=== PATIENT | male | born 1980 | race Caucasian/White ===

== ENCOUNTER 2020-10-21 08:34 | Outpatient (CLI) | payer OTHER | END 2020-10-21 08:35 | disposition home or self-care (01) | LOC: LAB.S 08:34 | PROVIDERS: ATTEND Physician Assistant | DX: R53.83 Other fatigue (principal) | CPT/HCPCS: 36415; 81599; 84402; 84403 ==

== ENCOUNTER 2021-08-27 14:15 | Inpatient (IN) | payer OTHER ==
[2021-08-27] MEDS ORDERED: METOCLOPRAMIDE 10 MG/2 ML VIAL IVP STA (14:56)
[2021-08-27] MEDS ORDERED: SODIUM CHLORIDE 0.9% 1,000 ML IV STA (14:56)
--- NOTE | 2021-08-27 14:59 | ED Physician Documentation ---
PD HPI ABD PAIN - Stated complaint Stated Complaint: VOMITTING - Chief complaint Chief Complaint: Abd Pain - History obtained from History obtained from: Patient - Additional information Additional information: 41-year-old gentleman who is healthy except for the current issue. For several years now he has episodic issues with vomiting, abdominal pain, and what he thinks is a pseudoobstruction. It has plagued his family and his father had similar issues without a specific diagnosis. He has had a very thorough work-up for this including 2 upper endoscopies, 2 lower endoscopies, PillCam, barium studies, MRI of the abdomen all without significant diagnostic abnormalities. Current flare started yesterday, he has been vomiting and unable to hold anything down since. There is been no significant bowel movement. Feels like his abdomen is swollen. He has no history of abdominal surgeries. The last episode was about 18 months ago. He does not smoke and rarely drinks. Uses marijuana maybe once a year, certainly not consistently. Of note, it sounds like he is never been imaged during a flare. Review of Systems Ten Systems: 10 systems reviewed and negative Constitutional: reports: Reviewed and negative Eyes: reports: Reviewed and negative Nose: reports: Reviewed and negative Throat: reports: Reviewed and negative PD PAST MEDICAL HISTORY - Present Medications Home Medications: Ambulatory Orders Medication Instructions Recorded Confirmed metroNIDAZOLE [Flagyl] 1 tab ORAL PRN PRN 08/27/21 08/27/21 - Allergies Allergies/Adverse Reactions: Allergies Allergy/AdvReac Type Severity Reaction Status Date / Time cefaclor [From Ceclor] Allergy Rash Verified 08/27/21 14:23 Penicillins Allergy Hives Verified 08/27/21 14:23 PD ED PE NORMAL - Vitals Vital signs reviewed: Yes - General General: Alert and oriented X 3 (He appears uncomfortable and is laying on his left side) - HEENT HEENT: PERRL, EOMI - Neck Neck: Supple, no meningeal sign, No bony TTP - Cardiac Cardiac: RRR, No murmur - Respiratory Respiratory: No respiratory distress, Clear bilaterally - Abdomen Abdomen: Other (High-pitched tinkling and decreased bowel sounds with a slightly distended abdomen that is nontender) - Back Back: No CVA TTP, No spinal TTP - Derm Derm: Normal color, Warm and dry - Extremities Extremities: No edema, No calf tenderness / cord - Neuro Neuro: Alert and oriented X 3, Normal speech Results - Vitals Vitals: Vital Signs - 24 hr 08/27/21 08/27/21 14:18 15:18 Temperature 36.8 C Heart Rate 67 59 L Respiratory 16 18 Rate Blood Pressure 132/77 H 132/85 H O2 Saturation 99 100 Oxygen O2 Source Room air - Labs Labs: Laboratory Tests 08/27/21 08/27/21 15:14 15:14 WBC 9.2 RBC 4.94 Hgb 15.2 Hct 45.3 MCV 91.7 MCH 30.8 MCHC 33.6 RDW 12.7 Plt Count 208 MPV 10.3 Neut # (Auto) 7.4 H Lymph # (Auto) 0.9 L [place] # (Auto) 0.8 Eos # (Auto) 0.0 Baso # (Auto) 0.0 Absolute Nucleated RBC 0.00 Nucleated RBC % 0.0 Sodium 134 L Potassium 4.1 Chloride 104 Carbon Dioxide 19 L Anion Gap 11.0 BUN 19 Creatinine 1.3 H Estimated GFR (MDRD) 61 L Glucose 84 Calcium 9.3 Total Bilirubin 1.3 H AST 29 ALT 26 Alkaline Phosphatase 69 Total Protein 7.5 Albumin 4.4 Globulin 3.1 Albumin/Globulin Ratio 1.4 Lipase 24 - Rads (name of study) CT of the abdomen pelvis demonstrates a sigmoid volvulus with large bowel obstruction. Radiology: EMP read contemporaneously PD MEDICAL DECISION MAKING - ED course ED course: 41-year-old gentleman with recurrent bouts of abdominal pain of unclear etiology but has never been imaged during a flare presents during a flare with inability to tolerate oral fluids for the last 36 hours and some findings of bowel obstruction on exam proven on CT also showing a sigmoid volvulus. Our on-call surgeon, Dr. Belcher was consulted and saw the patient at approximately 4:[address] Belcher plans to take him to the OR initially for colonoscopy for attempt at decompression. Departure - Departure Disposition: ED Transfer to [facility] Clinical Impression: Sigmoid volvulus Condition: Serious
[2021-08-27] MEDS ORDERED: IOPAMIDOL-300 100 ML VIAL ONE (15:05)
[2021-08-27 15:20] LABS: BASOPHILS % (AUTO) 0.2 %; EOSINOPHILS % (AUTO) 0.2 %; HCT - HEMATOCRIT 45.3 % (42.0-52.0); HGB - HEMOGLOBIN 15.2 g/dL (14.0-18.0); LYMPHOCYTES # (AUTO) 0.9 10^3/uL (1.5-3.5); LYMPHOCYTES % (AUTO) 9.6 %; MEAN CORPUSCULAR HEMOGLOBIN 30.8 pg (27.0-31.0); MEAN CORPUSCULAR HGB CONC 33.6 g/dL (32.0-36.0); MEAN CORPUSCULAR VOLUME 91.7 fL (80.0-94.0); MEAN PLATELET VOLUME 10.3 fL (7.4-11.4); MONOCYTES # (AUTO) 0.8 10^3/uL (0.0-1.0); MONOCYTES % (AUTO) 8.7 %; NEUTROPHILS # (AUTO) 7.4 10^3/uL (1.5-6.6); NEUTROPHILS % (AUTO) 80.9 %; PLT - PLATELET COUNT 208 10^3/uL (130-450); RED BLOOD COUNT 4.94 10^6/uL (4.70-6.10); RED CELL DISTRIBUTION WIDTH 12.7 % (12.0-15.0); WHITE BLOOD COUNT 9.2 x10^3/uL (4.8-10.8)
[2021-08-27 15:32] LABS: ALBUMIN 4.4 g/dL (3.2-5.5); ALBUMIN/GLOBULIN RATIO 1.4 (1.0-2.2); BILIRUBIN,TOTAL 1.3 mg/dL (0.2-1.0); CALCIUM 9.3 mg/dL (8.5-10.3); CREATININE 1.3 mg/dL (0.6-1.2); POTASSIUM 4.1 mmol/L (3.5-5.0); TOTAL PROTEIN 7.5 g/dL (6.7-8.2)
[2021-08-27] MEDS ORDERED: IOPAMIDOL-300 100 ML VIAL IVP ONE (16:28)
--- NOTE | 2021-08-27 16:57 | CT Report ---
PROCEDURE: Abdomen/Pelvis W INDICATIONS: IV only, abd pain, ?SBO CONTRAST: IV CONTRAST: Isovue 300 ml: 100 PO CONTRAST: *NO PO CONTRAST TECHNIQUE: After the administration of contrast, 5 mm thick sections acquired from the diaphragms to the sym physis. 5 mm thick coronal and sagittal reformats were acquired. For radiation dose reduction, the following was used: automated exposure control, adjustment of mA and/or kV according to patient size . COMPARISON: None. FINDINGS: Image quality: Excellent. ABDOMEN: Lung bases: Lung bases are clear. Heart size is normal. Solid organs: Liver and spleen are normal in size and enhancement. Gallbladder the gallbladder has a stone layering dependently. No gallbladder wall thickening or pericholecystic fluid. Biliary syste m is non dilated. Pancreas enhances normally. No adrenal nodules. Kidneys demonstrate normal size and enhancement, without hydronephrosis. Peritoneum and bowel: There is a sigmoid volvulus with severe distention of the large bowel measuring up to 8 cm. Rotation of the central mesentery is noted. Nodes and vessels: No retroperitoneal or mesenteric adenopathy by size criteria. Aorta and inferior vena cava are normal in size. Miscellaneous: No ventral hernias. PELVIS: Genitourinary: Bladder wall thickness is normal. Miscellaneous: No inguinal hernias or adenopathy. Bones: No suspicious bony lesions. No vertebral body compression fractures. IMPRESSION: Sigmoid volvulus with resulting large bowel obstruction. Findings were discussed with Dr. Duarte. Reviewed by: Jeremie Regalado on 08/27/2021 3:55 PM [facility] Approved by: Jeremie Regalado on 08/27/2021 3:55 PM [facility] Station ID: [id number]
[2021-08-27] MEDS ORDERED: HYDROmorphone 1 MG/ML CARPUJECT IVP STA (17:06)
--- NOTE | 2021-08-27 17:41 | SURGERY HX AND PHYSICAL(T) ---
Surgical History & Physical - Chief Complaint/HPI Chief Complaint: abdominal pain, distention, N/V, constipation History of Present Illness: This 41 yo male has had recurrent episodes of abdominal pain and has had an extensive GI workup elsewhere. He has had endoscopies, pill cam, but no definite diagnosis made. He has been prescribed flagyl for "SIBO"- small intestine bacterial overgrowth which he takes occasionally. Last episode was 18 months ago and resolved spontaneously. This episode started 3 days ago and has been associated with N/V/constipation. He has not eaten for two days. No previous abdominal surgery. He has not had any abdominal imaging during an episode until now. His father had a similar condition, undiagnosed, and recently. No definite hx of IBD in the family. - PMH/PSH/Social Hx Does the pt have a hx of MRSA?: No Neurological History: None Eyes, Ears, Nose, Throat: None Cardiovascular: None Respiratory: None Skin: None Endocrine/Autoimmune: None Gastrointestinal: Chronic constipation Urinary: None Musculoskeletal: None Blood Disorders: None Psychiatric: None Eyes Ears Nose Throat (EENT): Other Smoking Status: Never smoker Does the pt drink ETOH?: Yes Frequency: Occasional Does the pt have substance abuse?: No - Family Hx Family Hx: Other (Father had similar episodes of abdominal cramping and distention with no diagnosis made.) - Home Meds and Allergies Home Medications: metroNIDAZOLE [Flagyl] 1 tab ORAL PRN PRN 08/27/21 Allergies/Adverse Reactions: Allergies Allergy/AdvReac Type Severity Reaction Status Date / Time cefaclor [From [facility]] Allergy Rash Verified 08/27/21 14:23 Penicillins Allergy Hives Verified 08/27/21 14:23 - Review of Systems Constitutional: No: Fatigue Respiratory: No: Shortness of breath Gastrointestinal: Nausea, Vomiting, Abdominal pain, Other (distention) - Vital Signs Heart Rate: 61 Blood Pressure: 135/78 Temperature: 37.2 C Respiratory Rate: 17 O2 Saturation: 99 Weight (kg): 72.575 kg Height: 1.8 m - Physical Exam General Appearance: positive: Mild distress, Other (prefers to lie on his left side to reduce discomfort) Eyes Bilatera: positive: Normal inspection ENT: positive: ENT inspection nml Neck: positive: Trachea midline Respiratory: positive: No respiratory distress Cardiovascular: positive: Regular rate & rhythm Peripheral Pulses: positive: 2+ Abdomen: positive: Non-tender, Other (Mild distention. Dilated loops of bowel visible through the abdominal wall.). negative: Guarding, Rebound - Patient Review Patient Review: Problems were reviewed with the patient during this visit. Medications were reviewed with the patient during this visit. Allergies were reviewed this patient during this visit. Pertinent Tests Reviewed: All pertitent test for this patient were reviewed. - Assessment & Plan Assessment and Plan: Sigmoid volvulus in patient with long history of bowel discomfort, extensive GI workup with no definte diagnosis. CT abdomen shows classic findings for sigmoid volvulus, surprising in an individual of his age. He apparently has not had imaging during an episode of pain until this time, so intermittent sigmoid volvulus may be responsible for his previous episodes of pain. Flexible sigmoidoscopy will be done to attempt decompression of the colon and detorsion of the sigmoid colon. If possible, a soft rectal tube will be placed with its tube proximal to the area of torsion. If decompression is not possible or any signs of bowel necrosis are seen, the patient may require exploratory laparotomy with Justin procedure (resection of the sigmoid colon and temporary colostomy. If he is successfully decompressed, options for elective resection of the sigmoid colon will be presented.
--- NOTE | 2021-08-27 18:02 | ANESTHESIA ---
Pre-Anesthesia VS, & Labs - Diagnosis sigmoid volvulus - Procedure Colonoscopy Vital Signs: Temp Pulse Resp BP Pulse Ox 37.2 C 61 17 135/78 H 99 08/27/21 17:57 08/27/21 17:57 08/27/21 17:57 08/27/21 17:57 08/27/21 17:57 Height: 5 ft 11 in Weight (kg): 72.575 kg Body Mass Index: 22.3 BMI Classification: Healthy weight - NPO >8 hours - Lab Results Current Lab Results: Laboratory Tests 08/27/21 15:14: Sodium 134 L, Potassium 4.1, Chloride 104, Carbon Dioxide 19 L, Anion Gap 11.0, BUN 19, Creatinine 1.3 H, Estimated GFR (MDRD) 61 L, Glucose 84, Calcium 9.3, Total Bilirubin 1.3 H, AST 29, ALT 26, Alkaline Phosphatase 69, Total Protein 7.5, Albumin 4.4, Globulin 3.1, Albumin/Globulin Ratio 1.4, Lipase 24 08/27/21 15:14: WBC 9.2, RBC 4.94, Hgb 15.2, Hct 45.3, MCV 91.7, MCH 30.8, MCHC 33.6, RDW 12.7, Plt Count 208, MPV 10.3, Neut # (Auto) 7.4 H, Lymph # (Auto) 0.9 L, Jay # (Auto) 0.8, Eos # (Auto) 0.0, Baso # (Auto) 0.0, Absolute Nucleated RBC 0.00, Nucleated RBC % 0.0 Lab results reviewed: Yes Fish Bones: 08/27/21 15:14 08/27/21 15:14 Home Medications and Allergies Home Medications: Ambulatory Orders metroNIDAZOLE [Flagyl] 1 tab ORAL PRN PRN 08/27/21 metroNIDAZOLE [Flagyl] 1 tab ORAL PRN PRN 08/27/21 Allergies/Adverse Reactions: Allergies Allergy/AdvReac Type Severity Reaction Status Date / Time cefaclor [From [facility]] Allergy Rash Verified 08/27/21 14:23 Penicillins Allergy Hives Verified 08/27/21 14:23 Anes History & Medical History - Anesthetic History Anesthesia Complications: reports: No previous complications Family history of Anesthesia Complications: Denies Family history of Malignant Hyperthermia: Denies - Medical History Cardiovascular: reports: None Pulmonary: reports: None Gastrointestinal: reports: Chronic constipation Urinary: reports: None Neuro: reports: None Musculoskeletal: reports: None Endocrine/Autoimmune: reports: None Blood Disorders: reports: None Skin: reports: None Smoking Status: Never smoker - Surgical History Eyes Ears Nose Throat (EENT): reports: Other Exam General: Alert, Oriented x3, Cooperative, No acute distress Dental: WNL Mouth Openin Fingerbreadth Neck Mobility: Normal Mallampati classification: I Respiratory: Lungs clear, Normal breath sounds, No respiratory distress, No accessory muscle use Cardiovascular: Regular rate, Normal S1, Normal S2, No murmurs Plan Anesthesia Type: General, Total IV Consent for Procedure(s) Verified and Reviewed: Yes Code Status: Attempt Resuscitation ASA classification: 2-Mild systemic disease Is this case an emergency?: Yes
[2021-08-27] MEDS ORDERED: PROPOFOL 500 MG/50 ML 500 MG/50 ML VIAL ONE (18:04)
[2021-08-27 18:13] LABS: B. PARAPERTUSSIS- RESP PCR PAN NOT DETECTED; B. PERTUSSIS- RESP PCR PANEL NOT DETECTED; C. PNEUMONIAE- RESP PCR PANEL NOT DETECTED; CORONAVIRUS 229E-RESP PCR NOT DETECTED; CORONAVIRUS HKU1-RESP PCR NOT DETECTED; CORONAVIRUS NL63-RESP PCR NOT DETECTED; CORONAVIRUS OC43-RESP PCR NOT DETECTED; HUMAN METAPNEUMOVIRUS NOT DETECTED; INFLUENZA A- RESP PCR PANEL NOT DETECTED; INFLUENZA B - RESP PCR PANEL NOT DETECTED; M. PNEUMONIAE- RESP PCR PANEL NOT DETECTED; PARAINFLUENZA VIRUS 1 NOT DETECTED; PARAINFLUENZA VIRUS 2 NOT DETECTED; PARAINFLUENZA VIRUS 3 NOT DETECTED; PARAINFLUENZA VIRUS 4 NOT DETECTED; RHINOVIRUS/ENTEROVIRUS NOT DETECTED; RSV- RESP PCR PANEL NOT DETECTED; SARS-CoV-2 -RESP PCR PANEL NOT DETECTED
[2021-08-27] MEDS ORDERED: PROPOFOL 200 MG/20 ML VIAL IVP ONE (18:59)
--- NOTE | 2021-08-27 19:22 | ANESTHESIA POST OP EVALUATION ---
Anesthesia Post Eval - Post Anesthesia Eval Vitals: Last Vital Signs Temp 36.9 C 08/27/21 19:15 Pulse 63 08/27/21 19:15 Resp 18 08/27/21 19:15 BP 146/81 H 08/27/21 19:15 Pulse Ox 99 08/27/21 19:15 CV Function Including HR & BP: Stable Pain Control: Satisfactory Nausea & Vomiting: Negative Mental Status: Baseline Respiratory Status: Airway Patent Hydration Status: Satisfactory Anesthesia Complications: None
[2021-08-27] MEDS ORDERED: SODIUM CHLORIDE FLUSH 0.9% 10 ML SYRINGE IVP PRN (19:24)
--- NOTE | 2021-08-27 19:32 | OPERATIVE REPORT ---
Operative Report - General Procedure Date: 08/27/21 Planned Procedure: Flex sigmoidoscopy and reduction of sigmoid volvulus Pre-Op Diagnosis: Sigmoid volvulus Procedure Performed: Flexible sigmoidoscopy to splenic flexure (100 cm) Post Op Diagnosis: No evidence for sigmoid volvulus; suspect SBO with dilated small bowel - Procedure Note Primary Surgeon: Ye Anesthesia Provider: Ernesto CARROLL Anesthesia Technique: MAC Estimated Blood Loss (mL): 0 Indications: Abdominal pain, cramping, no BM or flatus with reading of sigmoid volvulus by radiologist on preop CT abdomen Findings: No sigmoid volvulus. Sigmoid and descending colon were found decompressed up to the splenic flexure. No stool in colon up to 100 cm from anal verge. Complications: none - Other Other Information/Narrative: Please see colonoscopy report.
[2021-08-27] MEDS ORDERED: LIDOCAINE 2% URO-JET 5 ML SYRINGE UR ONE (20:33)
[2021-08-27] MEDS: LACTATED RINGERS 1,000 ML IV SCH (20:35)
[2021-08-27] MEDS: HYDROmorphone 0.5 MG/0.5 ML SYRINGE IVP PRN (20:35)
[2021-08-27] MEDS: ONDANSETRON 4 MG/2 ML VIAL IVP PRN (20:35)
[2021-08-28] MEDS: ONDANSETRON 4 MG/2 ML VIAL IVP PRN (00:38)
[2021-08-28] MEDS: HYDROmorphone 0.5 MG/0.5 ML SYRINGE IVP PRN (00:39)
[2021-08-28] MEDS: SODIUM CHLORIDE FLUSH 0.9% 10 ML SYRINGE IVP SCH ×3 (00:45→16:21)
[2021-08-28] MEDS ORDERED: HYDROmorphone 0.5 MG/0.5 ML SYRINGE IVP PRN ×2 (02:13→11:25)
--- NOTE | 2021-08-28 03:15 | PROVIDER PROGRESS NOTE ---
Assessment/Plan - Problem List (1) SBO (small bowel obstruction) Assessment/Plan: Sigmoid volvulus ruled out by flexible sigmoidoscopy. Additional history provided by patient and his mother. 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 He was treated with both mesalamine and budesonide without improvement. His father also had a chronic abdominal problem which was diagnosed as Chronic Intestinal Pseudo-obstruction, which the patient's mother was told is a heritable condition. He eventually had surgery which relieved the obstruction, but he later from a CVA. - Current Meds Current Meds: Current Medications Generic Name Dose Route Start Last Admin Trade Name Freq PRN Reason Stop Dose Admin Lactated Ringer's 1,000 mls @ 125 mls/hr 08/27/21 20:00 08/27/21 20:35 Lr IV 125 mls/hr .Q8H GLORIA Administration Ondansetron HCl 4 mg 08/27/21 20:13 08/28/21 00:38 Ondansetron 4 Mg/2 Ml Vial IVP 4 mg Q4HR PRN Administration Nausea / Vomiting Sodium Chloride 10 ml 08/28/21 01:00 08/28/21 00:45 Sodium Chloride Flush 0.9% 10 Ml Syringe IVP Not Given 0100,0900,1700 GLORIA - Lab Result Fish Bone Diagrams: 08/27/21 15:14 08/27/21 15:14 - Additional Planning My Orders: My Active Orders 08/27/21 19:24 Activity Orders [RC] Q2HR Bladder Scan [RC] PRN IO [RC] IOSHIFT IV Line/Site Care [RC] QSHIFT NG Tube Care [RC] Q4HR Notify Provider - VS Parameter [RC] .notify Vital Signs [RC] Q30MX2,Q2HX2,Q4HX2,QSHIFT Sodium Chloride Flush 0.9% [Normal Saline Flush 0.9%] 10 ml IVP PRN PRN Code Status [OTHERS] Routine Condition of Patient [OTHERS] Routine DVT Prophylaxis [OTHERS] Routine 08/27/21 19:26 NPO except Meds [DIET] 08/27/21 19:28 SCDs [RC] QSHIFT 08/27/21 20:00 Lactated Ringers [Lr] 1,000 ml IV 125 mls/hr 08/27/21 20:13 Ondansetron Inj [Zofran Inj] 4 mg IVP Q4HR PRN 08/27/21 20:32 Nieto Insertion [RC] CONT 08/28/21 01:00 Sodium Chloride Flush 0.9% [Normal Saline Flush 0.9%] 10 ml IVP 0100,0900,1700 08/28/21 03:11 HYDROmorphone 1MG CARP [Dilaudid 1Mg Carp] 1 mg IVP Q2HR PRN 08/28/21 05:00 CBC - COMP BLD CT W/AUTO DIFF [HEME] DAILYLAB COMPREHENSIVE METABOLIC PANEL [CHEM] DAILYLAB 08/28/21 09:00 Abdomen 1 View X-Ray [XR] DAILY 08/29/21 09:00 Abdomen 1 View X-Ray [XR] DAILY 08/30/21 09:00 Abdomen 1 View X-Ray [XR] DAILY 08/31/21 09:00 Abdomen 1 View X-Ray [XR] DAILY 09/01/21 09:00 Abdomen 1 View X-Ray [XR] DAILY Subjective - Subjective Patient Reports: Abdominal Pain (Intermittent episodes of abdominal pain) Objective Vital Signs: Vital Signs - 24 hr 08/27/21 08/27/21 08/27/21 14:18 15:18 17:21 Temperature 36.8 C 37.2 C Heart Rate 67 59 L 61 Heart Rate [ Brachial] Respiratory 16 18 17 Rate Blood Pressure 132/77 H 132/85 H 135/78 H Blood Pressure [Left Brachial artery] O2 Saturation 99 100 99 08/27/21 08/27/21 08/27/21 17:57 19:15 19: Temperature 37.2 C 36.9 C 36.9 C Heart Rate 61 Heart Rate [ 63 60 Brachial] Respiratory 17 18 19 Rate Blood Pressure 135/78 H Blood Pressure 146/81 H 141/79 H [Left Brachial artery] O2 Saturation 99 99 98 08/27/21 08/27/21 08/27/21 19:54 20:48 23:50 Temperature 36.9 C 36.9 C Heart Rate Heart Rate [ 64 65 66 Brachial] Respiratory 19 19 18 Rate Blood Pressure Blood Pressure 141/73 H 142/79 H 121/73 [Left Brachial artery] O2 Saturation 100 98 98 Oxygen O2 Source Room air I&O (Last 24 Hrs): Intake and Output Totals x24h 08/26/21 08/27/21 08/28/21 23:59 23:59 23:59 Intake Total 1000 Output Total 300 200 Balance 700 -200 General: No acute distress Neuro: Oriented Times 3 Abdomen: No tenderness, Other (mild distention) - Results Results: Laboratory Results WBC 9.2 x10^3/uL (4.8-10.8) 08/27/21 15:14 RBC 4.94 10^6/uL (4.70-6.10) 08/27/21 15:14 Hgb 15.2 g/dL (14.0-18.0) 08/27/21 15:14 Hct 45.3 % (42.0-52.0) 08/27/21 15:14 MCV 91.7 fL (80.0-94.0) 08/27/21 15:14 MCH 30.8 pg (27.0-31.0) 08/27/21 15:14 MCHC 33.6 g/dL (32.0-36.0) 08/27/21 15:14 RDW 12.7 % (12.0-15.0) 08/27/21 15:14 Plt Count 208 10^3/uL (130-450) 08/27/21 15:14 MPV 10.3 fL (7.4-11.4) 08/27/21 15:14 Neut # (Auto) 7.4 10^3/uL (1.5-6.6) H 08/27/21 15:14 Lymph # (Auto) 0.9 10^3/uL (1.5-3.5) L 08/27/21 15:14 [place] # (Auto) 0.8 10^3/uL (0.0-1.0) 08/27/21 15:14 Eos # (Auto) 0.0 10^3/uL (0.0-0.7) 08/27/21 15:14 Baso # (Auto) 0.0 10^3/uL (0.0-0.1) 08/27/21 15:14 Absolute Nucleated RBC 0.00 x10^3/uL 08/27/21 15:14 Nucleated RBC % 0.0 /100WBC 08/27/21 15:14 Sodium 134 mmol/L (135-145) L 08/27/21 15:14 Potassium 4.1 mmol/L (3.5-5.0) 08/27/21 15:14 Chloride 104 mmol/L (101-111) 08/27/21 15:14 Carbon Dioxide 19 mmol/L (21-32) L 08/27/21 15:14 Anion Gap 11.0 (6-13) 08/27/21 15:14 BUN 19 mg/dL (6-20) 08/27/21 15:14 Creatinine 1.3 mg/dL (0.6-1.2) H 08/27/21 15:14 Estimated GFR (MDRD) 61 (>89) L 08/27/21 15:14 Glucose 84 mg/dL (70-100) 08/27/21 15:14 POC Whole Bld Glucose 80 mg/dL (70 - 100) 08/27/21 23:47 Calcium 9.3 mg/dL (8.5-10.3) 08/27/21 15:14 Total Bilirubin 1.3 mg/dL (0.2-1.0) H 08/27/21 15:14 AST 29 IU/L (10-42) 08/27/21 15:14 ALT 26 IU/L (10-60) 08/27/21 15:14 Alkaline Phosphatase 69 IU/L (42-121) 08/27/21 15:14 Total Protein 7.5 g/dL (6.7-8.2) 08/27/21 15:14 Albumin 4.4 g/dL (3.2-5.5) 08/27/21 15:14 Globulin 3.1 g/dL (2.1-4.2) 08/27/21 15:14 Albumin/Globulin Ratio 1.4 (1.0-2.2) 08/27/21 15:14 Lipase 24 U/L (22-51) 08/27/21 15:14 Nasal Adenovirus (PCR) NOT DETECTED 08/27/21 17:09 Nasal B. parapertussis DNA (PCR) NOT DETECTED 08/27/21 17:09 Nasal Coronavir 229E PCR NOT DETECTED 08/27/21 17:09 Nasal Coronavir HKU1 PCR NOT DETECTED 08/27/21 17:09 Nasal Coronavir NL63 PCR NOT DETECTED 08/27/21 17:09 Nasal Coronavir OC43 PCR NOT DETECTED 08/27/21 17:09 Nasal Enterovir/Rhinovir PCR NOT DETECTED 08/27/21 17:09 Nasal Influenza B PCR NOT DETECTED 08/27/21 17:09 Nasal Influenza A PCR NOT DETECTED 08/27/21 17:09 Nasal Parainfluen 1 PCR NOT DETECTED 08/27/21 17:09 Nasal Parainfluen 2 PCR NOT DETECTED 08/27/21 17:09 Nasal Parainfluen 3 PCR NOT DETECTED 08/27/21 17:09 Nasal Parainfluen 4 PCR NOT DETECTED 08/27/21 17:09 Nasal RSV (PCR) NOT DETECTED 08/27/21 17:09 Nasal B.pertussis DNA PCR NOT DETECTED 08/27/21 17:09 Nasal C.pneumoniae (PCR) NOT DETECTED 08/27/21 17:09 Chip Human Metapneumo PCR NOT DETECTED 08/27/21 17:09 Nasal M.pneumoniae (PCR) NOT DETECTED 08/27/21 17:09 Nasal SARS-CoV-2 (PCR) NOT DETECTED 08/27/21 17:09
[2021-08-28] MEDS: HYDROmorphone 1 MG/ML CARPUJECT IVP PRN ×4 (03:17→22:01)
[2021-08-28] MEDS ORDERED: SODIUM CHLORIDE 0.9% 500 ML IV ONE ×2 (03:33→16:02)
[2021-08-28] MEDS: LACTATED RINGERS 1,000 ML IV SCH ×2 (04:51→17:26)
[2021-08-28 06:26] LABS: BASOPHILS % (AUTO) 0.3 %; EOSINOPHILS % (AUTO) 0.1 %; HCT - HEMATOCRIT 41.2 % (42.0-52.0); HGB - HEMOGLOBIN 13.9 g/dL (14.0-18.0); LYMPHOCYTES # (AUTO) 0.7 10^3/uL (1.5-3.5); LYMPHOCYTES % (AUTO) 6.7 %; MEAN CORPUSCULAR HEMOGLOBIN 30.6 pg (27.0-31.0); MEAN CORPUSCULAR HGB CONC 33.7 g/dL (32.0-36.0); MEAN CORPUSCULAR VOLUME 90.7 fL (80.0-94.0); MEAN PLATELET VOLUME 9.7 fL (7.4-11.4); MONOCYTES # (AUTO) 0.7 10^3/uL (0.0-1.0); MONOCYTES % (AUTO) 6.8 %; NEUTROPHILS # (AUTO) 8.9 10^3/uL (1.5-6.6); NEUTROPHILS % (AUTO) 85.5 %; PLT - PLATELET COUNT 183 10^3/uL (130-450); RED BLOOD COUNT 4.54 10^6/uL (4.70-6.10); RED CELL DISTRIBUTION WIDTH 12.5 % (12.0-15.0); WHITE BLOOD COUNT 10.4 x10^3/uL (4.8-10.8)
[2021-08-28 06:36] LABS: ALBUMIN 3.7 g/dL (3.2-5.5); ALBUMIN/GLOBULIN RATIO 1.4 (1.0-2.2); CALCIUM 8.6 mg/dL (8.5-10.3); POTASSIUM 4.2 mmol/L (3.5-5.0); TOTAL PROTEIN 6.4 g/dL (6.7-8.2)
--- NOTE | 2021-08-28 08:12 | PROVIDER PROGRESS NOTE ---
Assessment/Plan - Problem List (1) SBO (small bowel obstruction) Assessment/Plan: Less cramping pain but no flatus or BM. Abdomen exam unchanged- soft, no guarding or rigidity, moderate distention. Plan: Discussed at length with the patient and his via telephone. 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 Crohn's has been suspected in the past and treated but with no improvement. Terminal ileum biopsies have shown inflammation but not diagnostic. Patient consented for ex lap, possible small bowel resection, possible ileostomy. - Current Meds Current Meds: Current Medications Generic Name Dose Route Start Last Admin Trade Name Freq PRN Reason Stop Dose Admin Hydromorphone HCl 1 mg 08/28/21 03:11 08/28/21 05:22 Hydromorphone 1 Mg/Ml Carpuject IVP 1 mg Q2HR PRN Administration PAIN Lactated Ringer's 1,000 mls @ 125 mls/hr 08/27/21 20:00 08/28/21 04:51 Lr IV 125 mls/hr .Q8H GLORIA Administration Ondansetron HCl 4 mg 08/27/21 20:13 08/28/21 00:38 Ondansetron 4 Mg/2 Ml Vial IVP 4 mg Q4HR PRN Administration Nausea / Vomiting Sodium Chloride 10 ml 08/28/21 01:00 08/28/21 00:45 Sodium Chloride Flush 0.9% 10 Ml Syringe IVP Not Given 0100,0900,1700 GLORIA - Lab Result Fish Bone Diagrams: 08/28/21 06:12 08/28/21 06:12 - Additional Planning My Orders: My Active Orders 08/27/21 19:24 Activity Orders [RC] Q2HR Bladder Scan [RC] PRN IO [RC] IOSHIFT IV Line/Site Care [RC] QSHIFT NG Tube Care [RC] Q4HR Notify Provider - VS Parameter [RC] .notify Vital Signs [RC] Q30MX2,Q2HX2,Q4HX2,QSHIFT Sodium Chloride Flush 0.9% [Normal Saline Flush 0.9%] 10 ml IVP PRN PRN Code Status [OTHERS] Routine Condition of Patient [OTHERS] Routine DVT Prophylaxis [OTHERS] Routine 08/27/21 19:26 NPO except Meds [DIET] 08/27/21 19:28 SCDs [RC] QSHIFT 08/27/21 20:00 Lactated Ringers [Lr] 1,000 ml IV 125 mls/hr 08/27/21 20:13 Ondansetron Inj [Zofran Inj] 4 mg IVP Q4HR PRN 08/27/21 20:32 Nieto Insertion [RC] CONT 08/28/21 01:00 Sodium Chloride Flush 0.9% [Normal Saline Flush 0.9%] 10 ml IVP 0100,0900,1700 08/28/21 03:11 HYDROmorphone 1MG CARP [Dilaudid 1Mg Carp] 1 mg IVP Q2HR PRN 08/28/21 09:00 Abdomen 1 View X-Ray [XR] DAILY 08/29/21 09:00 Abdomen 1 View X-Ray [XR] DAILY 08/30/21 09:00 Abdomen 1 View X-Ray [XR] DAILY 08/31/21 09:00 Abdomen 1 View X-Ray [XR] DAILY 09/01/21 09:00 Abdomen 1 View X-Ray [XR] DAILY Subjective - Subjective Patient Reports: Feeling Better (Slightly improved.), Abdominal Pain (Persistent waves of pain through the night) Objective Vital Signs: Vital Signs - 24 hr 08/27/21 08/27/21 08/27/21 14:18 15:18 17:21 Temperature 36.8 C 37.2 C Heart Rate 67 59 L 61 Heart Rate [ Brachial] Respiratory 16 18 17 Rate Blood Pressure 132/77 H 132/85 H 135/78 H Blood Pressure [Left Brachial artery] O2 Saturation 99 100 99 08/27/21 08/27/21 08/27/21 17:57 19:15 19:21 Temperature 37.2 C 36.9 C 36.9 C Heart Rate 61 Heart Rate [ 63 60 Brachial] Respiratory 17 18 19 Rate Blood Pressure 135/78 H Blood Pressure 146/81 H 141/79 H [Left Brachial artery] O2 Saturation 99 99 98 08/27/21 08/27/21 08/27/21 19:54 20:48 23:50 Temperature 36.9 C 36.9 C Heart Rate Heart Rate [ 64 65 66 Brachial] Respiratory 19 19 18 Rate Blood Pressure Blood Pressure 141/73 H 142/79 H 121/73 [Left Brachial artery] O2 Saturation 100 98 98 08/28/21 03:48 Temperature 36.6 C Heart Rate Heart Rate [ 60 Brachial] Respiratory 18 Rate Blood Pressure Blood Pressure 127/63 [Left Brachial artery] O2 Saturation 100 Oxygen O2 Source Room air I&O (Last 24 Hrs): Intake and Output Totals x24h 08/26/21 08/27/21 08/28/21 23:59 23:59 23:59 Intake Total 1000 1404.167 Output Total 300 1250 Balance 700 154.167 General: Alert, Oriented x3 Cardiovascular: Regular rate Respiratory: No respiratory distress Abdomen: No tenderness - Results Results: Laboratory Results WBC 10.4 x10^3/uL (4.8-10.8) 08/28/21 06:12 RBC 4.54 10^6/uL (4.70-6.10) L 08/28/21 06:12 Hgb 13.9 g/dL (14.0-18.0) L 08/28/21 06:12 Hct 41.2 % (42.0-52.0) L 08/28/21 06:12 MCV 90.7 fL (80.0-94.0) 08/28/21 06:12 MCH 30.6 pg (27.0-31.0) 08/28/21 06:12 MCHC 33.7 g/dL (32.0-36.0) 08/28/21 06:12 RDW 12.5 % (12.0-15.0) 08/28/21 06:12 Plt Count 183 10^3/uL (130-450) 08/28/21 06:12 MPV 9.7 fL (7.4-11.4) 08/28/21 06:12 Neut # (Auto) 8.9 10^3/uL (1.5-6.6) H 08/28/21 06:12 Lymph # (Auto) 0.7 10^3/uL (1.5-3.5) L 08/28/21 06:12 [place] # (Auto) 0.7 10^3/uL (0.0-1.0) 08/28/21 06:12 Eos # (Auto) 0.0 10^3/uL (0.0-0.7) 08/28/21 06:12 Baso # (Auto) 0.0 10^3/uL (0.0-0.1) 08/28/21 06:12 Absolute Nucleated RBC 0.00 x10^3/uL 08/28/21 06:12 Nucleated RBC % 0.0 /100WBC 08/28/21 06:12 Sodium 133 mmol/L (135-145) L 08/28/21 06:12 Potassium 4.2 mmol/L (3.5-5.0) 08/28/21 06:12 Chloride 103 mmol/L (101-111) 08/28/21 06:12 Carbon Dioxide 20 mmol/L (21-32) L 08/28/21 06:12 Anion Gap 10.0 (6-13) 08/28/21 06:12 BUN 14 mg/dL (6-20) 08/28/21 06:12 Creatinine 1.0 mg/dL (0.6-1.2) 08/28/21 06:12 Estimated GFR (MDRD) 83 (>89) L 08/28/21 06:12 Glucose 96 mg/dL (70-100) 08/28/21 06:12 POC Whole Bld Glucose 80 mg/dL (70 - 100) 08/27/21 23:47 Calcium 8.6 mg/dL (8.5-10.3) 08/28/21 06:12 Total Bilirubin 1.0 mg/dL (0.2-1.0) 08/28/21 06:12 AST 23 IU/L (10-42) 08/28/21 06:12 ALT 23 IU/L (10-60) 08/28/21 06:12 Alkaline Phosphatase 66 IU/L (42-121) 08/28/21 06:12 Total Protein 6.4 g/dL (6.7-8.2) L 08/28/21 06:12 Albumin 3.7 g/dL (3.2-5.5) 08/28/21 06:12 Globulin 2.7 g/dL (2.1-4.2) 08/28/21 06:12 Albumin/Globulin Ratio 1.4 (1.0-2.2) 08/28/21 06:12 Lipase 24 U/L (22-51) 08/27/21 15:14 Nasal Adenovirus (PCR) NOT DETECTED 08/27/21 17:09 Nasal B. parapertussis DNA (PCR) NOT DETECTED 08/27/21 17:09 Nasal Coronavir 229E PCR NOT DETECTED 08/27/21 17:09 Nasal Coronavir HKU1 PCR NOT DETECTED 08/27/21 17:09 Nasal Coronavir NL63 PCR NOT DETECTED 08/27/21 17:09 Nasal Coronavir OC43 PCR NOT DETECTED 08/27/21 17:09 Nasal Enterovir/Rhinovir PCR NOT DETECTED 08/27/21 17:09 Nasal Influenza B PCR NOT DETECTED 08/27/21 17:09 Nasal Influenza A PCR NOT DETECTED 08/27/21 17:09 Nasal Parainfluen 1 PCR NOT DETECTED 08/27/21 17:09 Nasal Parainfluen 2 PCR NOT DETECTED 08/27/21 17:09 Nasal Parainfluen 3 PCR NOT DETECTED 08/27/21 17:09 Nasal Parainfluen 4 PCR NOT DETECTED 08/27/21 17:09 Nasal RSV (PCR) NOT DETECTED 08/27/21 17:09 Nasal B.pertussis DNA PCR NOT DETECTED 08/27/21 17:09 Nasal C.pneumoniae (PCR) NOT DETECTED 08/27/21 17:09 Chip Human Metapneumo PCR NOT DETECTED 08/27/21 17:09 Nasal M.pneumoniae (PCR) NOT DETECTED 08/27/21 17:09 Nasal SARS-CoV-2 (PCR) NOT DETECTED 08/27/21 17:09 ABX Reporting Has patient been on IV antibiotics over the past 48 hours?: No
[2021-08-28] MEDS ORDERED: LIDOCAINE-MPF 2% 5 ML VIAL ONE (08:56)
[2021-08-28] MEDS ORDERED: ROCURONIUM 50 MG/5 ML VIAL ONE ×2 (08:56→10:14)
[2021-08-28] MEDS ORDERED: PROPOFOL 200 MG/20 ML VIAL IVP ONE (08:56)
[2021-08-28] MEDS ORDERED: fentaNYL 100 MCG/2 ML VIAL ONE ×2 (09:01→09:41)
[2021-08-28] MEDS ORDERED: MIDAZOLAM 2 MG/2 ML VIAL ONE (09:03)
[2021-08-28] MEDS ORDERED: BUPIVACAINE 0.5% PF 10 ML VIAL ONE ×2 (09:29)
[2021-08-28] MEDS ORDERED: LIDOCAINE-MPF 1% 30 ML VIAL ONE (09:29)
--- NOTE | 2021-08-28 09:40 | XRAY Report ---
PROCEDURE: Abdomen 1 View X-Ray INDICATIONS: SBO TECHNIQUE: 1 view of the abdomen were acquired. COMPARISON: 08/27/2021 CT abdomen and pelvis FINDINGS: Sigmoid volvulus an associated extensive bowel dilatation not significantly changed in appearance. IMPRESSION: Sigmoid volvulus an large bowel obstruction is not significantly changed. Reviewed by: Joel Perez MD on 08/28/2021 9:38 AM PST Approved by: Joel Perez MD on 08/28/2021 9:38 AM PST Station ID: [id number]
[2021-08-28] MEDS ORDERED: DEXAMETHASONE 4 MG/ML VIAL ONE (10:12)
[2021-08-28] MEDS ORDERED: ONDANSETRON 4 MG/2 ML VIAL ONE (10:12)
[2021-08-28] MEDS ORDERED: KETOROLAC 30 MG/ML VIAL ONE (10:12)
[2021-08-28] MEDS ORDERED: ACETAMINOPHEN 1,000 MG/100 ML 100 ML IV ONE (10:12)
[2021-08-28] MEDS ORDERED: ROPIVACAINE 0.5% PF 20 ML AMPULE ONE (10:13)
[2021-08-28] MEDS ORDERED: ceFAZolin 1 GM VIAL ONE (10:13)
[2021-08-28] MEDS ORDERED: SEVOFLURANE 250 ML LIQUID INH ONE (10:19)
[2021-08-28] MEDS ORDERED: SUGAMMADEX 200 MG/2 ML VIAL IVP ONE ×2 (10:48→11:12)
--- NOTE | 2021-08-28 11:12 | OPERATIVE REPORT ---
Operative Report - General Admit Date: 08/27/21 Procedure Date: 08/28/21 Planned Procedure: Exploratory laparotomy, possible small bowel resection Pre-Op Diagnosis: Small bowel obstruction Procedure Performed: Exploratory laparotomy, reduction of midgut volvulus Post Op Diagnosis: Midgut volvulus - Procedure Note Primary Surgeon: Ye Secondary Surgeon: kelsi Anesthesia Provider: Elzbieta Sahikh CRNA Anesthesia Technique: General ET tube Pathology: none Estimated Blood Loss (mL): 25 Indications: 41 yo Male with a 10-year history of intermittent abdominal pain and distention. He has had extensive evaluation by gastroenterology and carried a diagnosis of Crohn's disease at one time but did not have any improvement with medication for Crohn's. Current episode of pain began [address] scan was read as showing a sigmoid volvulus but the patient had flexible sigmoidoscopy last night and there was no evidence for sigmoid volvulus. After overnight observation with IV fluids and nasogastric suction his abdominal exam was unchanged and he had passed no flatus. He was consented for exploratory laparotomy with possible small bowel resection. Findings: The patient had massive, chronic distention of the small bowel from the mid jejunum to the distal ileum. 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 After evisceration and counterclockwise rotation of the small bowel the volvulus was reduced and all the small bowel was well perfused. There were no areas of ischemic or necrotic bowel. Small bowel contents were easily passed into the cecum, with no evidence for Crohn's disease or adhesive bands in the region of the terminal ileum. Complications: none - Other Other Information/Narrative: The patient was taken to the operating room where general anesthesia was induced and the patient was intubated. The abdomen was prepped with ChloraPrep and sterilely draped in usual fashion. A midline incision from slightly above the umbilicus to the symphysis pubis was made with a scalpel and cautery was used to divide the midline fascia. The abdomen was entered with only a small amount of ascites noted. The chronically distended loops of small bowel were eviscerated the midgut volvulus was noted and the bowel was rotated counterclockwise to reduce the volvulus. All bowel pinked up and appeared well perfused after the volvulus was reduced. Nasogastric tube position in the stomach was checked. Contents of the ileum were manually expressed into the cecum to the ileocecal valve without difficulty. The small bowel was then placed back into the abdomen with care taken to prevent any further torsion or volvulus. The abdomen was irrigated with saline and the midline fascia was closed with a running double- stranded 0 PDS. The subcutaneous tissues were approximated with 3-0 Vicryl interrupted sutures and skin was closed with glendy. Mepilex dressing was applied and the patient had TRACY abdominal blocks by BAK[facility] HELPER prior to extubation.
[2021-08-28] MEDS ORDERED: MORPHINE 2 MG/ML CARPUJECT IVP PRN (11:25)
[2021-08-28] MEDS ORDERED: NALOXONE 0.4 MG/ML VIAL IVP PRN (11:25)
[2021-08-28] MEDS ORDERED: ePHEDrine 50 MG/ML VIAL IVP PRN (11:25)
[2021-08-28] MEDS ORDERED: fentaNYL 100 MCG/2 ML VIAL IVP PRN (11:25)
[2021-08-28] MEDS ORDERED: ATROPINE ABBOJECT 1 MG/10 ML SYRINGE IVP PRN (11:25)
[2021-08-28] MEDS ORDERED: METOCLOPRAMIDE 10 MG/2 ML VIAL IVP PRN (11:25)
[2021-08-28] MEDS ORDERED: ONDANSETRON 4 MG/2 ML VIAL IVP PRN (11:25)
[2021-08-28] MEDS ORDERED: LACTATED RINGERS 1,000 ML IV ONE (11:26)
[2021-08-28] MEDS ORDERED: LACTATED RINGERS 1,000 ML IV SCH (12:00)
--- NOTE | 2021-08-28 13:15 | ANESTHESIA POST OP EVALUATION ---
Anesthesia Post Eval - Post Anesthesia Eval Vitals: Last Vital Signs Temp 36.7 C 08/28/21 13:00 Pulse 78 08/28/21 13:00 Resp 17 08/28/21 13:00 BP 124/69 08/28/21 13:00 Pulse Ox 95 08/28/21 13:00 CV Function Including HR & BP: Stable Pain Control: Satisfactory Nausea & Vomiting: Negative Mental Status: Baseline Respiratory Status: Airway Patent Hydration Status: Satisfactory Anesthesia Complications: None
--- NOTE | 2021-08-28 16:07 | PROVIDER PROGRESS NOTE ---
Subjective - General Admit Date: 08/27/21 Procedure Date: 08/28/21 Post Op Days: 0 Procedure Performed: Ex lap, detorsion of midgut volvulus - Review of Systems Wound/Incisions: positive: Dressing dry and intact Objective - Patient Data Reviewed Vital Signs: Yes Vital Signs: Vital Signs x48h Temp Pulse Pulse Resp BP BP Pulse Ox 08/28/21 15:00 36.8 C 72 16 120/61 94 08/28/21 13:00 36.7 C 78 17 124/69 95 08/28/21 12:30 67 16 120/62 93 08/28/21 12:15 36.8 C 66 16 116/63 93 08/28/21 12:00 66 16 115/66 93 08/28/21 11:55 36.8 C 70 16 118/66 94 08/28/21 11:37 36.6 C 80 15 123/73 93 08/28/21 11:32 36.6 C 65 13 119/69 92 08/28/21 11:28 36.6 C 66 13 120/69 92 08/28/21 11:23 36.7 C 67 15 114/66 92 08/28/21 11:18 36.7 C 76 17 120/66 96 08/28/21 08:33 36.5 C 60 18 121/71 99 Weight: Weight 08/26/21 08/27/21 08/28/21 23:59 23:59 23:59 Weight (kg) 74 kg Intake & Output: Intake and Output Totals x24h 08/26/21 08/27/21 08/28/21 23:59 23:59 23:59 Intake Total 1000 1404.167 Output Total 300 1750 Balance 700 -345.833 - Lab Results Lab Results: 08/28/21 06:12 08/28/21 06:12 Other Lab Results: Lab Results x24hrs 08/28/21 08/28/21 08/28/21 Range/Units 12: 06:12 06:12 WBC 10.4 (4.8-10.8) x10^3/uL RBC 4.54 L (4.70-6.10) 10^6/uL Hgb 13.9 L (14.0-18.0) g/dL Hct 41.2 L (42.0-52.0) % MCV 90.7 (80.0-94.0) fL MCH 30.6 (27.0-31.0) pg MCHC 33.7 (32.0-36.0) g/dL RDW 12.5 (12.0-15.0) % Plt Count 183 (130-450) 10^3/uL MPV 9.7 (7.4-11.4) fL Neut # (Auto) 8.9 H (1.5-6.6) 10^3/uL Lymph # (Auto) 0.7 L (1.5-3.5) 10^3/uL [place] # (Auto) 0.7 (0.0-1.0) 10^3/uL Eos # (Auto) 0.0 (0.0-0.7) 10^3/uL Baso # (Auto) 0.0 (0.0-0.1) 10^3/uL Absolute Nucleated RBC 0.00 x10^3/uL Nucleated RBC % 0.0 /100WBC Sodium 133 L (135-145) mmol/L Potassium 4.2 (3.5-5.0) mmol/L Chloride 103 (101-111) mmol/L Carbon Dioxide 20 L (21-32) mmol/L Anion Gap 10.0 (6-13) BUN 14 (6-20) mg/dL Creatinine 1.0 (0.6-1.2) mg/dL Estimated GFR (MDRD) 83 L (>89) Glucose 96 (70-100) mg/dL POC Whole Bld Glucose 99 (70 - 100) mg/dL Calcium 8.6 (8.5-10.3) mg/dL Total Bilirubin 1.0 (0.2-1.0) mg/dL AST 23 (10-42) IU/L ALT 23 (10-60) IU/L Alkaline Phosphatase 66 (42-121) IU/L Total Protein 6.4 L (6.7-8.2) g/dL Albumin 3.7 (3.2-5.5) g/dL Globulin 2.7 (2.1-4.2) g/dL Albumin/Globulin Ratio 1.4 (1.0-2.2) Nasal Adenovirus (PCR) Nasal B. parapertussis DNA (PCR) Nasal Coronavir 229E PCR Nasal Coronavir HKU1 PCR Nasal Coronavir NL63 PCR Nasal Coronavir OC43 PCR Nasal Enterovir/Rhinovir PCR Nasal Influenza B PCR Nasal Influenza A PCR Nasal Parainfluen 1 PCR Nasal Parainfluen 2 PCR Nasal Parainfluen 3 PCR Nasal Parainfluen 4 PCR Nasal RSV (PCR) Nasal B.pertussis DNA PCR Nasal C.pneumoniae (PCR) Chip Human Metapneumo PCR Nasal M.pneumoniae (PCR) Nasal SARS-CoV-2 (PCR) 08/27/21 08/27/21 08/27/21 Range/Units 23:47 21:25 17:09 WBC (4.8-10.8) x10^3/uL RBC (4.70-6.10) 10^6/uL Hgb (14.0-18.0) g/dL Hct (42.0-52.0) % MCV (80.0-94.0) fL MCH (27.0-31.0) pg MCHC (32.0-36.0) g/dL RDW (12.0-15.0) % Plt Count (130-450) 10^3/uL MPV (7.4-11.4) fL Neut # (Auto) (1.5-6.6) 10^3/uL Lymph # (Auto) (1.5-3.5) 10^3/uL [place] # (Auto) (0.0-1.0) 10^3/uL Eos # (Auto) (0.0-0.7) 10^3/uL Baso # (Auto) (0.0-0.1) 10^3/uL Absolute Nucleated RBC x10^3/uL Nucleated RBC % /100WBC Sodium (135-145) mmol/L Potassium (3.5-5.0) mmol/L Chloride (101-111) mmol/L Carbon Dioxide (21-32) mmol/L Anion Gap (6-13) BUN (6-20) mg/dL Creatinine (0.6-1.2) mg/dL Estimated GFR (MDRD) (>89) Glucose (70-100) mg/dL POC Whole Bld Glucose 80 79 (70 - 100) mg/dL Calcium (8.5-10.3) mg/dL Total Bilirubin (0.2-1.0) mg/dL AST (10-42) IU/L ALT (10-60) IU/L Alkaline Phosphatase (42-121) IU/L Total Protein (6.7-8.2) g/dL Albumin (3.2-5.5) g/dL Globulin (2.1-4.2) g/dL Albumin/Globulin Ratio (1.0-2.2) Nasal Adenovirus (PCR) NOT DETECTED Nasal B. parapertussis DNA (PCR) NOT DETECTED Nasal Coronavir 229E PCR NOT DETECTED Nasal Coronavir HKU1 PCR NOT DETECTED Nasal Coronavir NL63 PCR NOT DETECTED Nasal Coronavir OC43 PCR NOT DETECTED Nasal Enterovir/Rhinovir PCR NOT DETECTED Nasal Influenza B PCR NOT DETECTED Nasal Influenza A PCR NOT DETECTED Nasal Parainfluen 1 PCR NOT DETECTED Nasal Parainfluen 2 PCR NOT DETECTED Nasal Parainfluen 3 PCR NOT DETECTED Nasal Parainfluen 4 PCR NOT DETECTED Nasal RSV (PCR) NOT DETECTED Nasal B.pertussis DNA PCR NOT DETECTED Nasal C.pneumoniae (PCR) NOT DETECTED Chip Human Metapneumo PCR NOT DETECTED Nasal M.pneumoniae (PCR) NOT DETECTED Nasal SARS-CoV-2 (PCR) NOT DETECTED - Current Medications Current Medications: Current Medications Generic Name Dose Route Start Last Admin Trade Name Freq PRN Reason Stop Dose Admin Hydromorphone HCl 1 mg 08/28/21 03:11 08/28/21 05:22 Hydromorphone 1 Mg/Ml Carpuject IVP 1 mg Q2HR PRN Administration PAIN Lactated Ringer's 1,000 mls @ 125 mls/hr 08/27/21 20:00 08/28/21 04:51 Lr IV 125 mls/hr .Q8H GLORIA Administration Ondansetron HCl 4 mg 08/27/21 20:13 08/28/21 00:38 Ondansetron 4 Mg/2 Ml Vial IVP 4 mg Q4HR PRN Administration Nausea / Vomiting Sodium Chloride 10 ml 08/28/21 01:00 08/28/21 13:07 Sodium Chloride Flush 0.9% 10 Ml Syringe IVP Not Given 0100,0900,1700 [facility] - Physical Exam Wound/Incisions: positive: Dressing dry and intact Impression/Plan - Problem List Problem List: Postop check, s/p detorsion of midgut volvulus. Patient resting comfortably. Urine dark and concentrated. Plan: check CMP now, normal saline 500 ml fluid bolus. Ng to LIS.
[2021-08-28 16:24] LABS: ALBUMIN 3.3 g/dL (3.2-5.5); ALBUMIN/GLOBULIN RATIO 1.3 (1.0-2.2); BILIRUBIN,TOTAL 1.9 mg/dL (0.2-1.0); CALCIUM 8.3 mg/dL (8.5-10.3); POTASSIUM 4.1 mmol/L (3.5-5.0); TOTAL PROTEIN 5.9 g/dL (6.7-8.2)
[2021-08-29] MEDS: HYDROmorphone 1 MG/ML CARPUJECT IVP PRN ×8 (00:11→20:23)
[2021-08-29] MEDS: LACTATED RINGERS 1,000 ML IV SCH ×2 (00:24→09:14)
[2021-08-29] MEDS: SODIUM CHLORIDE FLUSH 0.9% 10 ML SYRINGE IVP SCH ×3 (00:39→19:06)
[2021-08-29 06:10] LABS: POTASSIUM 3.9 mmol/L (3.5-5.0)
[2021-08-29] MEDS ORDERED: DEXTROSE 5%-LACTATED RINGERS 1,000 ML IV SCH (10:00)
[2021-08-29 10:09] LABS: BASOPHILS % (AUTO) 0.3 %; EOSINOPHILS # (AUTO) 0.3 10^3/uL (0.0-0.7); EOSINOPHILS % (AUTO) 3.2 %; HCT - HEMATOCRIT 37.7 % (42.0-52.0); HGB - HEMOGLOBIN 12.7 g/dL (14.0-18.0); LYMPHOCYTES # (AUTO) 0.9 10^3/uL (1.5-3.5); LYMPHOCYTES % (AUTO) 9.1 %; MEAN CORPUSCULAR HEMOGLOBIN 31.1 pg (27.0-31.0); MEAN CORPUSCULAR HGB CONC 33.7 g/dL (32.0-36.0); MEAN CORPUSCULAR VOLUME 92.2 fL (80.0-94.0); MEAN PLATELET VOLUME 11.3 fL (7.4-11.4); MONOCYTES # (AUTO) 1.5 10^3/uL (0.0-1.0); MONOCYTES % (AUTO) 15.2 %; NEUTROPHILS % (AUTO) 71.9 %; PLT - PLATELET COUNT 178 10^3/uL (130-450); RED BLOOD COUNT 4.09 10^6/uL (4.70-6.10); WHITE BLOOD COUNT 9.7 x10^3/uL (4.8-10.8)
--- NOTE | 2021-08-29 10:20 | PROVIDER PROGRESS NOTE ---
Subjective - General Admit Date: 08/27/21 Procedure Date: 08/28/21 Post Op Days: 1 Procedure Performed: Ex lap, detorsion of midgut volvulus - Review of Systems Wound/Incisions: positive: Dressing dry and intact General: positive: No symptoms Objective - Patient Data Reviewed Vital Signs: Yes Weight: Weight 08/27/21 08/28/21 08/29/21 23:59 23:59 23:59 Weight (kg) 74 kg Intake & Output: Intake and Output Totals x24h 08/27/21 08/28/21 08/29/21 23:59 23:59 23:59 Intake Total 1000 3512.500 1262.5 Output Total 300 2205 375 Balance 700 1307.500 887.5 - Lab Results Lab Results: 08/29/21 05:20 08/29/21 05:37 Other Lab Results: Lab Results x24hrs 08/29/21 08/29/21 08/29/21 Range/Units 05:51 05:37 05:20 WBC 9.7 (4.8-10.8) x10^3/uL RBC 4.09 L (4.70-6.10) 10^6/uL Hgb 12.7 L (14.0-18.0) g/dL Hct 37.7 L (42.0-52.0) % MCV 92.2 (80.0-94.0) fL MCH 31.1 H (27.0-31.0) pg MCHC 33.7 (32.0-36.0) g/dL RDW 13.0 (12.0-15.0) % Plt Count 178 (130-450) 10^3/uL MPV 11.3 (7.4-11.4) fL Neut # (Auto) 7.0 H (1.5-6.6) 10^3/uL Lymph # (Auto) 0.9 L (1.5-3.5) 10^3/uL [place] # (Auto) 1.5 H (0.0-1.0) 10^3/uL Eos # (Auto) 0.3 (0.0-0.7) 10^3/uL Baso # (Auto) 0.0 (0.0-0.1) 10^3/uL Absolute Nucleated RBC 0.00 x10^3/uL Nucleated RBC % 0.0 /100WBC Sodium 136 (135-145) mmol/L Potassium 3.9 (3.5-5.0) mmol/L Chloride 104 (101-111) mmol/L Carbon Dioxide 25 (21-32) mmol/L Anion Gap 7.0 (6-13) BUN 20 (6-20) mg/dL Creatinine 1.0 (0.6-1.2) mg/dL Estimated GFR (MDRD) 83 L (>89) Glucose 114 H (70-100) mg/dL POC Whole Bld Glucose 104 H (70 - 100) mg/dL Calcium 8.0 L (8.5-10.3) mg/dL Total Bilirubin (0.2-1.0) mg/dL AST (10-42) IU/L ALT (10-60) IU/L Alkaline Phosphatase (42-121) IU/L Total Protein (6.7-8.2) g/dL Albumin (3.2-5.5) g/dL Globulin (2.1-4.2) g/dL Albumin/Globulin Ratio (1.0-2.2) 08/29/21 08/28/21 08/28/21 Range/Units 00:16 17:53 16:07 WBC (4.8-10.8) x10^3/uL RBC (4.70-6.10) 10^6/uL Hgb (14.0-18.0) g/dL Hct (42.0-52.0) % MCV (80.0-94.0) fL MCH (27.0-31.0) pg MCHC (32.0-36.0) g/dL RDW (12.0-15.0) % Plt Count (130-450) 10^3/uL MPV (7.4-11.4) fL Neut # (Auto) (1.5-6.6) 10^3/uL Lymph # (Auto) (1.5-3.5) 10^3/uL [place] # (Auto) (0.0-1.0) 10^3/uL Eos # (Auto) (0.0-0.7) 10^3/uL Baso # (Auto) (0.0-0.1) 10^3/uL Absolute Nucleated RBC x10^3/uL Nucleated RBC % /100WBC Sodium 134 L (135-145) mmol/L Potassium 4.1 (3.5-5.0) mmol/L Chloride 102 (101-111) mmol/L Carbon Dioxide 20 L (21-32) mmol/L Anion Gap 12.0 (6-13) BUN 17 (6-20) mg/dL Creatinine 1.0 (0.6-1.2) mg/dL Estimated GFR (MDRD) 83 L (>89) Glucose 115 H (70-100) mg/dL POC Whole Bld Glucose 120 H 120 H (70 - 100) mg/dL Calcium 8.3 L (8.5-10.3) mg/dL Total Bilirubin 1.9 H (0.2-1.0) mg/dL AST 27 (10-42) IU/L ALT 23 (10-60) IU/L Alkaline Phosphatase 73 (42-121) IU/L Total Protein 5.9 L (6.7-8.2) g/dL Albumin 3.3 (3.2-5.5) g/dL Globulin 2.6 (2.1-4.2) g/dL Albumin/Globulin Ratio 1.3 (1.0-2.2) 12/25/ Range/Units 12:22 WBC (4.8-10.8) x10^3/uL RBC (4.70-6.10) 10^6/uL Hgb (14.0-18.0) g/dL Hct (42.0-52.0) % MCV (80.0-94.0) fL MCH (27.0-31.0) pg MCHC (32.0-36.0) g/dL RDW (12.0-15.0) % Plt Count (130-450) 10^3/uL MPV (7.4-11.4) fL Neut # (Auto) (1.5-6.6) 10^3/uL Lymph # (Auto) (1.5-3.5) 10^3/uL [place] # (Auto) (0.0-1.0) 10^3/uL Eos # (Auto) (0.0-0.7) 10^3/uL Baso # (Auto) (0.0-0.1) 10^3/uL Absolute Nucleated RBC x10^3/uL Nucleated RBC % /100WBC Sodium (135-145) mmol/L Potassium (3.5-5.0) mmol/L Chloride (101-111) mmol/L Carbon Dioxide (21-32) mmol/L Anion Gap (6-13) BUN (6-20) mg/dL Creatinine (0.6-1.2) mg/dL Estimated GFR (MDRD) (>89) Glucose (70-100) mg/dL POC Whole Bld Glucose 99 (70 - 100) mg/dL Calcium (8.5-10.3) mg/dL Total Bilirubin (0.2-1.0) mg/dL AST (10-42) IU/L ALT (10-60) IU/L Alkaline Phosphatase (42-121) IU/L Total Protein (6.7-8.2) g/dL Albumin (3.2-5.5) g/dL Globulin (2.1-4.2) g/dL Albumin/Globulin Ratio (1.0-2.2) - Current Medications Current Medications: Current Medications Generic Name Dose Route Start Last Admin Trade Name Freq PRN Reason Stop Dose Admin Hydromorphone HCl 1 mg 08/28/21 03:11 08/29/21 09:14 Hydromorphone 1 Mg/Ml Carpuject IVP 1 mg Q2HR PRN Administration PAIN Ondansetron HCl 4 mg 08/27/21 20:13 08/28/21 00:38 Ondansetron 4 Mg/2 Ml Vial IVP 4 mg Q4HR PRN Administration Nausea / Vomiting Sodium Chloride 10 ml 08/28/21 01:00 08/29/21 09:14 Sodium Chloride Flush 0.9% 10 Ml Syringe IVP Not Given 0100,0900,1700 [facility] - Physical Exam Wound/Incisions: positive: Dressing dry and intact Abdomen: positive: No distention Impression/Plan - Problem List Problem List: Doing better, less pain. Has not ambulated yet. Plan: Ambulate TID, up in chair. D/C fisher Continue NG tube to LIS but allow sips/chips Follow CBC and CMP. Electrolytes OK but T Bili 1.9 yesterday.
[2021-08-29] MEDS ORDERED: BENZOCAINE/MENTHOL LOZENGE MM PRN (16:53)
[2021-08-29] MEDS ORDERED: PHENOL THROAT SPRAY 177 ML MM PRN (16:53)
[2021-08-29] MEDS: DEXTROSE 5%-LACTATED RINGERS 1,000 ML IV SCH (21:44)
[2021-08-30] MEDS: HYDROmorphone 1 MG/ML CARPUJECT IVP PRN ×5 (00:23→22:22)
[2021-08-30] MEDS: SODIUM CHLORIDE FLUSH 0.9% 10 ML SYRINGE IVP SCH ×3 (03:23→17:57)
[2021-08-30 06:08] LABS: BASOPHILS % (AUTO) 0.3 %; EOSINOPHILS # (AUTO) 0.1 10^3/uL (0.0-0.7); EOSINOPHILS % (AUTO) 0.7 %; HCT - HEMATOCRIT 34.5 % (42.0-52.0); HGB - HEMOGLOBIN 11.5 g/dL (14.0-18.0); LYMPHOCYTES # (AUTO) 0.9 10^3/uL (1.5-3.5); LYMPHOCYTES % (AUTO) 12.5 %; MEAN CORPUSCULAR HEMOGLOBIN 30.8 pg (27.0-31.0); MEAN CORPUSCULAR HGB CONC 33.3 g/dL (32.0-36.0); MEAN CORPUSCULAR VOLUME 92.5 fL (80.0-94.0); MEAN PLATELET VOLUME 9.5 fL (7.4-11.4); MONOCYTES # (AUTO) 0.9 10^3/uL (0.0-1.0); MONOCYTES % (AUTO) 12.1 %; NEUTROPHILS # (AUTO) 5.2 10^3/uL (1.5-6.6); NEUTROPHILS % (AUTO) 74.1 %; PLT - PLATELET COUNT 132 10^3/uL (130-450); RED BLOOD COUNT 3.73 10^6/uL (4.70-6.10); RED CELL DISTRIBUTION WIDTH 12.7 % (12.0-15.0)
[2021-08-30 06:34] LABS: ALBUMIN 2.7 g/dL (3.2-5.5); ALBUMIN/GLOBULIN RATIO 1.1 (1.0-2.2); BILIRUBIN,TOTAL 0.6 mg/dL (0.2-1.0); CALCIUM 8.1 mg/dL (8.5-10.3); CREATININE 0.9 mg/dL (0.6-1.2); POTASSIUM 3.3 mmol/L (3.5-5.0); TOTAL PROTEIN 5.2 g/dL (6.7-8.2)
--- NOTE | 2021-08-30 07:37 | XRAY Report ---
PROCEDURE: Chest 2 View X-Ray INDICATIONS: postop atelectasisi TECHNIQUE: 2 view(s) of the chest. COMPARISON: CT abdomen pelvis 08/27/2021, x-ray abdomen 08/28/2021 FINDINGS: Surgical changes and devices: None. Lungs and pleura: No pleural effusions or pneumothorax. Lungs are clear. Mediastinum: Mediastinal contours are normal. Heart size is normal. Bones and chest wall: No suspicious bony abnormalities. Soft tissues appear unremarkable. Miscellaneous: There is marked lucency below the hemidiaphragms bilaterally. It is noted that these a reas corresponded to markedly dilated bowel loops on prior exams. IMPRESSION: 1. Lungs are clear. 2. Lucencies noted below the hemidiaphragm suspected to represent dilated loops of bowel, given dorcas rison to prior exams. However, superimposed free air cannot be definitively excluded on the basis of this exam. If this is of concern, decubitus views are recommended. Reviewed by: Nova Ash MD on 08/30/2021 7:36 AM [facility] Approved by: Nova Ash MD on 08/30/2021 7:36 AM PST Station ID: [id number]
--- NOTE | 2021-08-30 09:07 | PROVIDER PROGRESS NOTE ---
Subjective - General Admit Date: 08/27/21 Procedure Date: 08/28/21 Post Op Days: 2 Procedure Performed: Ex lap, detorsion of midgut volvulus - Review of Systems Wound/Incisions: positive: Dressing dry and intact General: positive: No symptoms HEENT: positive: No symptoms Gastrointestinal: negative: Nausea, Vomiting - Other Other Information/Narrative: Henry reports he is feeling better every day. He had another bowel movement last evening about 6 PM that he describes as "more normal". Reports his pain is well controlled. NGT accidently dislodged last evening. The decision was made to leave it out but remain NPO. He denies any nausea this morning. PICC line has been discussed with him already and he is in agreement with plans for TPN. Objective - Patient Data Reviewed Vital Signs: Yes Vital Signs: Vital Signs x48h Temp Pulse Resp BP Pulse Ox 08/30/21 07:47 36.6 C 64 16 110/60 98 Intake & Output: Intake and Output Totals x24h 08/28/21 08/29/21 08/30/21 23:59 23:59 23:59 Intake Total 3512.500 2527.083 886.667 Output Total 2205 825 650 Balance 8169.324 4504.083 236.667 - Lab Results Lab Results: 08/30/21 06:03 08/30/21 06:03 Other Lab Results: Lab Results x24hrs 08/30/21 08/30/21 08/30/21 Range/Units 06:05 06:03 06:03 WBC 7.0 (4.8-10.8) x10^3/uL RBC 3.73 L (4.70-6.10) 10^6/uL Hgb 11.5 L (14.0-18.0) g/dL Hct 34.5 L (42.0-52.0) % MCV 92.5 (80.0-94.0) fL MCH 30.8 (27.0-31.0) pg MCHC 33.3 (32.0-36.0) g/dL RDW 12.7 (12.0-15.0) % Plt Count 132 (130-450) 10^3/uL MPV 9.5 (7.4-11.4) fL Neut # (Auto) 5.2 (1.5-6.6) 10^3/uL Lymph # (Auto) 0.9 L (1.5-3.5) 10^3/uL [place] # (Auto) 0.9 (0.0-1.0) 10^3/uL Eos # (Auto) 0.1 (0.0-0.7) 10^3/uL Baso # (Auto) 0.0 (0.0-0.1) 10^3/uL Absolute Nucleated RBC 0.00 x10^3/uL Nucleated RBC % 0.0 /100WBC Sodium 141 (135-145) mmol/L Potassium 3.3 L (3.5-5.0) mmol/L Chloride 106 (101-111) mmol/L Carbon Dioxide 29 (21-32) mmol/L Anion Gap 6.0 (6-13) BUN 15 (6-20) mg/dL Creatinine 0.9 (0.6-1.2) mg/dL Estimated GFR (MDRD) 93 (>89) Glucose 109 H (70-100) mg/dL POC Whole Bld Glucose 105 H (70 - 100) mg/dL Calcium 8.1 L (8.5-10.3) mg/dL Total Bilirubin 0.6 (0.2-1.0) mg/dL AST 17 (10-42) IU/L ALT 16 (10-60) IU/L Alkaline Phosphatase 48 (42-121) IU/L Total Protein 5.2 L (6.7-8.2) g/dL Albumin 2.7 L (3.2-5.5) g/dL Globulin 2.5 (2.1-4.2) g/dL Albumin/Globulin Ratio 1.1 (1.0-2.2) 08/29/21 08/29/21 08/29/21 Range/Units 23:43 17:35 11:43 WBC (4.8-10.8) x10^3/uL RBC (4.70-6.10) 10^6/uL Hgb (14.0-18.0) g/dL Hct (42.0-52.0) % MCV (80.0-94.0) fL MCH (27.0-31.0) pg MCHC (32.0-36.0) g/dL RDW (12.0-15.0) % Plt Count (130-450) 10^3/uL MPV (7.4-11.4) fL Neut # (Auto) (1.5-6.6) 10^3/uL Lymph # (Auto) (1.5-3.5) 10^3/uL [place] # (Auto) (0.0-1.0) 10^3/uL Eos # (Auto) (0.0-0.7) 10^3/uL Baso # (Auto) (0.0-0.1) 10^3/uL Absolute Nucleated RBC x10^3/uL Nucleated RBC % /100WBC Sodium (135-145) mmol/L Potassium (3.5-5.0) mmol/L Chloride (101-111) mmol/L Carbon Dioxide (21-32) mmol/L Anion Gap (6-13) BUN (6-20) mg/dL Creatinine (0.6-1.2) mg/dL Estimated GFR (MDRD) (>89) Glucose (70-100) mg/dL POC Whole Bld Glucose 104 H 114 H 96 (70 - 100) mg/dL Calcium (8.5-10.3) mg/dL Total Bilirubin (0.2-1.0) mg/dL AST (10-42) IU/L ALT (10-60) IU/L Alkaline Phosphatase (42-121) IU/L Total Protein (6.7-8.2) g/dL Albumin (3.2-5.5) g/dL Globulin (2.1-4.2) g/dL Albumin/Globulin Ratio (1.0-2.2) 08/29/21 Range/Units 05:20 WBC 9.7 (4.8-10.8) x10^3/uL RBC 4.09 L (4.70-6.10) 10^6/uL Hgb 12.7 L (14.0-18.0) g/dL Hct 37.7 L (42.0-52.0) % MCV 92.2 (80.0-94.0) fL MCH 31.1 H (27.0-31.0) pg MCHC 33.7 (32.0-36.0) g/dL RDW 13.0 (12.0-15.0) % Plt Count 178 (130-450) 10^3/uL MPV 11.3 (7.4-11.4) fL Neut # (Auto) 7.0 H (1.5-6.6) 10^3/uL Lymph # (Auto) 0.9 L (1.5-3.5) 10^3/uL [place] # (Auto) 1.5 H (0.0-1.0) 10^3/uL Eos # (Auto) 0.3 (0.0-0.7) 10^3/uL Baso # (Auto) 0.0 (0.0-0.1) 10^3/uL Absolute Nucleated RBC 0.00 x10^3/uL Nucleated RBC % 0.0 /100WBC Sodium (135-145) mmol/L Potassium (3.5-5.0) mmol/L Chloride (101-111) mmol/L Carbon Dioxide (21-32) mmol/L Anion Gap (6-13) BUN (6-20) mg/dL Creatinine (0.6-1.2) mg/dL Estimated GFR (MDRD) (>89) Glucose (70-100) mg/dL POC Whole Bld Glucose (70 - 100) mg/dL Calcium (8.5-10.3) mg/dL Total Bilirubin (0.2-1.0) mg/dL AST (10-42) IU/L ALT (10-60) IU/L Alkaline Phosphatase (42-121) IU/L Total Protein (6.7-8.2) g/dL Albumin (3.2-5.5) g/dL Globulin (2.1-4.2) g/dL Albumin/Globulin Ratio (1.0-2.2) - Current Medications Current Medications: Current Medications Generic Name Dose Route Start Last Admin Trade Name Freq PRN Reason Stop Dose Admin Hydromorphone HCl 1 mg 08/28/21 03:11 08/30/21 04:53 Hydromorphone 1 Mg/Ml Carpuject IVP 1 mg Q2HR PRN Administration PAIN Dextrose/Lactated Ringer's 1,000 mls @ 100 mls/hr 08/29/21 20:00 08/30/21 06:47 D5lr IV 100 mls/hr .Q10H GLORIA Infusion Ondansetron HCl 4 mg 08/27/21 20:13 08/28/21 00:38 Ondansetron 4 Mg/2 Ml Vial IVP 4 mg Q4HR PRN Administration Nausea / Vomiting Phenol/Menthol 2 sprays 08/29/21 16:53 08/29/21 18:13 Phenol Throat [place] 177 Ml MM 2 sprays Q2HR PRN Administration Throat Pain Sodium Chloride 10 ml 08/28/21 01:00 08/30/21 03:23 Sodium Chloride Flush 0.9% 10 Ml Syringe IVP Not Given 0100,0900,1700 GLORIA Throat Lozenges 1 lozenge 08/29/21 16:53 08/29/21 18:14 Benzocaine/Menthol Lozenge MM 1 lozenge Q2HR PRN Administration Throat pain - Physical Exam General Appearance: positive: No acute distress, Alert Eyes Bilateral: positive: Normal inspection Respiratory: positive: No respiratory distress, Breath sounds nml Abdomen: positive: Tenderness (Appropriately tender to palpation with dressing and binder in place) Neurologic/Psychiatric: positive: Oriented x3 ABX Reporting Has patient been on IV antibiotics over the past 48 hours?: No Impression/Plan - Problem List Problem List: 1. Continue NPO but will leave NGT out unless nausea returns 2. PICC placement today 3. Consult Dietitian for TPN 4. Continue ambulation
--- NOTE | 2021-08-30 10:14 | XRAY Report ---
PROCEDURE: Chest for Line Placement INDICATIONS: New PICC line TECHNIQUE: One view of the chest was acquired. COMPARISON: 08/30/2021 exam FINDINGS: Right upper extremity PICC terminates just superior to the cavoatrial junction. IMPRESSION: Right upper extremity PICC terminates just above the cavoatrial junction. Reviewed by: Joel Perez MD on 08/30/2021 10:13 AM PST Approved by: Joel Perez MD on 08/30/2021 10:13 AM PST Station ID: [email or web address]
[2021-08-30] MEDS: DEXTROSE 5%-LACTATED RINGERS 1,000 ML IV SCH ×2 (11:04→22:25)
[2021-08-30] MEDS: FAT EMUL/SOY/MCT/OLIV/FISH OIL 50 GM/250 ML BAG IV SCH (19:27)
[2021-08-30] MEDS: TPN (CLINIMIX E 5/15) 2,000 ML with MULTIVITAMIN 10 ML, TRACE ELEMENTS 1 ML IV SCH ×3 (19:27)
[2021-08-31] MEDS: SODIUM CHLORIDE FLUSH 0.9% 10 ML SYRINGE IVP SCH ×3 (05:30→18:43)
[2021-08-31] MEDS: HYDROmorphone 1 MG/ML CARPUJECT IVP PRN (05:41)
[2021-08-31 06:19] LABS: BASOPHILS % (AUTO) 0.4 %; EOSINOPHILS # (AUTO) 0.1 10^3/uL (0.0-0.7); HCT - HEMATOCRIT 34.9 % (42.0-52.0); HGB - HEMOGLOBIN 11.9 g/dL (14.0-18.0); LYMPHOCYTES # (AUTO) 0.8 10^3/uL (1.5-3.5); LYMPHOCYTES % (AUTO) 17.3 %; MEAN CORPUSCULAR HEMOGLOBIN 31.5 pg (27.0-31.0); MEAN CORPUSCULAR HGB CONC 34.1 g/dL (32.0-36.0); MEAN CORPUSCULAR VOLUME 92.3 fL (80.0-94.0); MEAN PLATELET VOLUME 10.5 fL (7.4-11.4); MONOCYTES # (AUTO) 0.5 10^3/uL (0.0-1.0); MONOCYTES % (AUTO) 11.3 %; NEUTROPHILS # (AUTO) 3.1 10^3/uL (1.5-6.6); NEUTROPHILS % (AUTO) 68.6 %; PLT - PLATELET COUNT 133 10^3/uL (130-450); RED BLOOD COUNT 3.78 10^6/uL (4.70-6.10); RED CELL DISTRIBUTION WIDTH 12.6 % (12.0-15.0); WHITE BLOOD COUNT 4.5 x10^3/uL (4.8-10.8)
[2021-08-31 06:26] LABS: ALBUMIN 2.8 g/dL (3.2-5.5); ALBUMIN/GLOBULIN RATIO 1.1 (1.0-2.2); BILIRUBIN,TOTAL 0.6 mg/dL (0.2-1.0); CALCIUM 8.4 mg/dL (8.5-10.3); CREATININE 0.7 mg/dL (0.6-1.2); POTASSIUM 3.2 mmol/L (3.5-5.0); TOTAL PROTEIN 5.3 g/dL (6.7-8.2)
[2021-08-31] MEDS: DEXTROSE 5%-LACTATED RINGERS 1,000 ML IV SCH (10:08)
[2021-08-31 10:13] LABS: MAGNESIUM 1.9 mg/dL (1.7-2.8)
--- NOTE | 2021-08-31 11:41 | PROVIDER PROGRESS NOTE ---
Subjective - General Admit Date: 08/27/21 Procedure Date: 08/28/21 Post Op Days: 3 Procedure Performed: Ex lap, detorsion of midgut volvulus - Review of Systems Wound/Incisions: positive: Dressing dry and intact General: positive: No symptoms HEENT: positive: No symptoms Gastrointestinal: negative: Nausea, Vomiting - Other Other Information/Narrative: Patient reports pain is definitely improved. He had two bowel movements yesterday and continues to pass small amounts of flatus. Wants to take a shower and move around today. Would like his pain meds to be decreased in dose. He reports he was able to go a full 8 hours yesterday without needing any and, when he did take a dose, he felt he could have gotten by with less. His and baby daughter are visiting him this morning. Objective - Patient Data Reviewed Vital Signs: Yes Vital Signs: Vital Signs x48h Temp Pulse Resp BP Pulse Ox 08/31/21 08:39 36.3 C L 58 L 16 124/72 100 Weight: Weight 08/29/21 08/30/21 08/31/21 23:59 23:59 23:59 Weight (kg) 74 kg Intake & Output: Intake and Output Totals x24h 08/29/21 08/30/21 08/31/21 23:59 23:59 23:59 Intake Total 2527.083 2000.000 1250 Output Total 825 650 Balance 3378.340 9137.000 1250 - Lab Results Lab Results: 08/31/21 05:20 08/31/21 05:20 Other Lab Results: Lab Results x24hrs 08/31/21 08/31/21 08/31/21 Range/Units 05:47 05:20 05:20 WBC (4.8-10.8) x10^3/uL RBC (4.70-6.10) 10^6/uL Hgb (14.0-18.0) g/dL Hct (42.0-52.0) % MCV (80.0-94.0) fL MCH (27.0-31.0) pg MCHC (32.0-36.0) g/dL RDW (12.0-15.0) % Plt Count (130-450) 10^3/uL MPV (7.4-11.4) fL Neut # (Auto) (1.5-6.6) 10^3/uL Lymph # (Auto) (1.5-3.5) 10^3/uL [place] # (Auto) (0.0-1.0) 10^3/uL Eos # (Auto) (0.0-0.7) 10^3/uL Baso # (Auto) (0.0-0.1) 10^3/uL Absolute Nucleated RBC x10^3/uL Nucleated RBC % /100WBC Sodium 139 (135-145) mmol/L Potassium 3.2 L (3.5-5.0) mmol/L Chloride 103 (101-111) mmol/L Carbon Dioxide 29 (21-32) mmol/L Anion Gap 7.0 (6-13) BUN 11 (6-20) mg/dL Creatinine 0.7 (0.6-1.2) mg/dL Estimated GFR (MDRD) 125 (>89) Glucose 123 H (70-100) mg/dL POC Whole Bld Glucose 97 (70 - 100) mg/dL Calcium 8.4 L (8.5-10.3) mg/dL Phosphorus 3.0 (2.5-4.6) mg/dL Magnesium 1.9 (1.7-2.8) mg/dL Total Bilirubin 0.6 (0.2-1.0) mg/dL AST 17 (10-42) IU/L ALT 14 (10-60) IU/L Alkaline Phosphatase 48 (42-121) IU/L Total Protein 5.3 L (6.7-8.2) g/dL Albumin 2.8 L (3.2-5.5) g/dL Globulin 2.5 (2.1-4.2) g/dL Albumin/Globulin Ratio 1.1 (1.0-2.2) 08/31/21 08/31/21 08/30/21 Range/Units 05:20 00:50 17:46 WBC 4.5 L (4.8-10.8) x10^3/uL RBC 3.78 L (4.70-6.10) 10^6/uL Hgb 11.9 L (14.0-18.0) g/dL Hct 34.9 L (42.0-52.0) % MCV 92.3 (80.0-94.0) fL MCH 31.5 H (27.0-31.0) pg MCHC 34.1 (32.0-36.0) g/dL RDW 12.6 (12.0-15.0) % Plt Count 133 (130-450) 10^3/uL MPV 10.5 (7.4-11.4) fL Neut # (Auto) 3.1 (1.5-6.6) 10^3/uL Lymph # (Auto) 0.8 L (1.5-3.5) 10^3/uL [place] # (Auto) 0.5 (0.0-1.0) 10^3/uL Eos # (Auto) 0.1 (0.0-0.7) 10^3/uL Baso # (Auto) 0.0 (0.0-0.1) 10^3/uL Absolute Nucleated RBC 0.00 x10^3/uL Nucleated RBC % 0.0 /100WBC Sodium (135-145) mmol/L Potassium (3.5-5.0) mmol/L Chloride (101-111) mmol/L Carbon Dioxide (21-32) mmol/L Anion Gap (6-13) BUN (6-20) mg/dL Creatinine (0.6-1.2) mg/dL Estimated GFR (MDRD) (>89) Glucose (70-100) mg/dL POC Whole Bld Glucose 156 H 93 (70 - 100) mg/dL Calcium (8.5-10.3) mg/dL Phosphorus (2.5-4.6) mg/dL Magnesium (1.7-2.8) mg/dL Total Bilirubin (0.2-1.0) mg/dL AST (10-42) IU/L ALT (10-60) IU/L Alkaline Phosphatase (42-121) IU/L Total Protein (6.7-8.2) g/dL Albumin (3.2-5.5) g/dL Globulin (2.1-4.2) g/dL Albumin/Globulin Ratio (1.0-2.2) - Current Medications Current Medications: Current Medications Generic Name Dose Route Start Last Admin Trade Name Freq PRN Reason Stop Dose Admin Multivitamins 10 ml/ TRACE 2,011 mls @ 83 mls/hr 08/30/21 19:00 08/30/21 19:27 ELEMENTS 1 ml/ Amino Ac/ IV 83 mls/hr Electrol/Dextrose/Calcium TPN/PPN GLORIA Administration Fat Emulsion-Soy/MCT/[place]/Fish Oil 50 gm in 250 mls @ 21 mls/hr 08/30/21 19:00 08/31/21 08:14 Smoflipid 20% Iv Fat Emulsion IV Infused 1900 GLORIA Infusion Ondansetron HCl 4 mg 08/27/21 20:13 08/28/21 00:38 Ondansetron 4 Mg/2 Ml Vial IVP 4 mg Q4HR PRN Administration Nausea / Vomiting Phenol/Menthol 2 sprays 08/29/21 16:53 08/29/21 18:13 Phenol Throat [place] 177 Ml MM 2 sprays Q2HR PRN Administration Throat Pain Sodium Chloride 10 ml 08/28/21 01:00 08/31/21 10:07 Sodium Chloride Flush 0.9% 10 Ml Syringe IVP Not Given 0100,0900,1700 [facility] Throat Lozenges 1 lozenge 08/29/21 16:53 08/29/21 18:14 Benzocaine/Menthol Lozenge MM 1 lozenge Q2HR PRN Administration Throat pain - Physical Exam Wound/Incisions: positive: Healing well General Appearance: positive: No acute distress, Alert Eyes Bilateral: positive: Normal inspection, PERRL, EOMI ENT: positive: ENT inspection nml Neck: positive: Nml inspection Respiratory: positive: Chest non-tender, No respiratory distress, Breath sounds nml Cardiovascular: positive: Regular rate & rhythm, No murmur Abdomen: positive: Nml bowel sounds, No distention, Tenderness (Appropriate post operative tenderness to palpation) Back: negative: CVA tenderness (R), CVA tenderness (L) Skin: positive: Color nml Neurologic/Psychiatric: positive: Oriented x3 ABX Reporting Has patient been on IV antibiotics over the past 48 hours?: No Impression/Plan - Problem List Problem List: Laparotomy with correction of midgut volvulus 1. Decrease hydromorphone to 0.5 mg 2. Continue nutritional support with TPN 3. Start clear liquid diet. Conservative advancement plans 4. Labs are reassuring. 5. Encourage ambulation 6. OK to hold fluids so patient can shower. Restart after shower.
[2021-08-31] MEDS: HYDROmorphone 0.5 MG/0.5 ML SYRINGE IVP PRN ×2 (12:00→21:09)
[2021-08-31] MEDS: FAT EMUL/SOY/MCT/OLIV/FISH OIL 50 GM/250 ML BAG IV SCH (19:21)
[2021-08-31] MEDS: TPN (CLINIMIX E 5/15) 2,000 ML with MULTIVITAMIN 10 ML, TRACE ELEMENTS 1 ML IV SCH ×3 (19:21)
[2021-09-01] MEDS: SODIUM CHLORIDE FLUSH 0.9% 10 ML SYRINGE IVP SCH ×3 (05:19→16:37)
[2021-09-01 06:04] LABS: BASOPHILS % (AUTO) 0.7 %; EOSINOPHILS # (AUTO) 0.1 10^3/uL (0.0-0.7); EOSINOPHILS % (AUTO) 2.8 %; HCT - HEMATOCRIT 36.1 % (42.0-52.0); HGB - HEMOGLOBIN 12.1 g/dL (14.0-18.0); LYMPHOCYTES % (AUTO) 21.3 %; MEAN CORPUSCULAR HEMOGLOBIN 30.6 pg (27.0-31.0); MEAN CORPUSCULAR HGB CONC 33.5 g/dL (32.0-36.0); MEAN CORPUSCULAR VOLUME 91.2 fL (80.0-94.0); MEAN PLATELET VOLUME 10.4 fL (7.4-11.4); MONOCYTES # (AUTO) 0.5 10^3/uL (0.0-1.0); MONOCYTES % (AUTO) 9.8 %; NEUTROPHILS % (AUTO) 64.7 %; PLT - PLATELET COUNT 167 10^3/uL (130-450); RED BLOOD COUNT 3.96 10^6/uL (4.70-6.10); RED CELL DISTRIBUTION WIDTH 12.6 % (12.0-15.0); WHITE BLOOD COUNT 4.6 x10^3/uL (4.8-10.8)
[2021-09-01 06:16] LABS: ALBUMIN 3.1 g/dL (3.2-5.5); ALBUMIN/GLOBULIN RATIO 1.2 (1.0-2.2); BILIRUBIN,TOTAL 0.3 mg/dL (0.2-1.0); CALCIUM 8.8 mg/dL (8.5-10.3); CREATININE 0.7 mg/dL (0.6-1.2); POTASSIUM 3.4 mmol/L (3.5-5.0); TOTAL PROTEIN 5.7 g/dL (6.7-8.2)
[2021-09-01] MEDS ORDERED: ACETAMINOPHEN 1,000 MG/100 ML 100 ML IV PRN (10:04)
--- NOTE | 2021-09-01 12:35 | PROVIDER PROGRESS NOTE ---
Subjective - General Admit Date: 08/27/21 Procedure Date: 08/28/21 Post Op Days: 4 Procedure Performed: Ex lap, detorsion of midgut volvulus - Review of Systems Wound/Incisions: positive: Healing well General: positive: No symptoms HEENT: positive: No symptoms Gastrointestinal: negative: Nausea, Vomiting - Other Other Information/Narrative: Feeling better every day. Very optimistic today. He reports that he has been taking his liquids without any nausea. He is also continuing to pass flatus and had another bowel movement overnight.He reports his pain is well controlled and he is using very little pain medication. Keeping the binder in place. Objective - Patient Data Reviewed Vital Signs: Yes Vital Signs: Vital Signs x48h Temp Pulse Resp BP Pulse Ox 09/01/21 07:03 36.7 C 54 L 18 114/64 100 Weight: Weight 08/30/21 08/31/21 09/01/21 23:59 23:59 23:59 Weight (kg) 74 kg Intake & Output: Intake and Output Totals x24h 08/30/21 08/31/21 09/01/21 23:59 23:59 23:59 Intake Total 2000.000 4749.7 630 Output Total 650 Balance 0043.534 9892.7 630 - Lab Results Lab Results: 09/01/21 05:30 09/01/21 05:30 Other Lab Results: Lab Results x24hrs 09/01/21 09/01/21 09/01/21 Range/Units 11:25 07:34 05:30 WBC (4.8-10.8) x10^3/uL RBC (4.70-6.10) 10^6/uL Hgb (14.0-18.0) g/dL Hct (42.0-52.0) % MCV (80.0-94.0) fL MCH (27.0-31.0) pg MCHC (32.0-36.0) g/dL RDW (12.0-15.0) % Plt Count (130-450) 10^3/uL MPV (7.4-11.4) fL Neut # (Auto) (1.5-6.6) 10^3/uL Lymph # (Auto) (1.5-3.5) 10^3/uL [place] # (Auto) (0.0-1.0) 10^3/uL Eos # (Auto) (0.0-0.7) 10^3/uL Baso # (Auto) (0.0-0.1) 10^3/uL Absolute Nucleated RBC x10^3/uL Nucleated RBC % /100WBC Sodium 142 (135-145) mmol/L Potassium 3.4 L (3.5-5.0) mmol/L Chloride 105 (101-111) mmol/L Carbon Dioxide 28 (21-32) mmol/L Anion Gap 9.0 (6-13) BUN 11 (6-20) mg/dL Creatinine 0.7 (0.6-1.2) mg/dL Estimated GFR (MDRD) 125 (>89) Glucose 113 H (70-100) mg/dL POC Whole Bld Glucose 104 H 92 (70 - 100) mg/dL Calcium 8.8 (8.5-10.3) mg/dL Total Bilirubin 0.3 (0.2-1.0) mg/dL AST 18 (10-42) IU/L ALT 14 (10-60) IU/L Alkaline Phosphatase 44 (42-121) IU/L Total Protein 5.7 L (6.7-8.2) g/dL Albumin 3.1 L (3.2-5.5) g/dL Globulin 2.6 (2.1-4.2) g/dL Albumin/Globulin Ratio 1.2 (1.0-2.2) Prealbumin 15 L (18-45) mg/dL Triglycerides 65 ( - 149) mg/dL 09/01/21 08/31/21 08/31/21 Range/Units 05:30 20:46 17:04 WBC 4.6 L (4.8-10.8) x10^3/uL RBC 3.96 L (4.70-6.10) 10^6/uL Hgb 12.1 L (14.0-18.0) g/dL Hct 36.1 L (42.0-52.0) % MCV 91.2 (80.0-94.0) fL MCH 30.6 (27.0-31.0) pg MCHC 33.5 (32.0-36.0) g/dL RDW 12.6 (12.0-15.0) % Plt Count 167 (130-450) 10^3/uL MPV 10.4 (7.4-11.4) fL Neut # (Auto) 3.0 (1.5-6.6) 10^3/uL Lymph # (Auto) 1.0 L (1.5-3.5) 10^3/uL [place] # (Auto) 0.5 (0.0-1.0) 10^3/uL Eos # (Auto) 0.1 (0.0-0.7) 10^3/uL Baso # (Auto) 0.0 (0.0-0.1) 10^3/uL Absolute Nucleated RBC 0.00 x10^3/uL Nucleated RBC % 0.0 /100WBC Sodium (135-145) mmol/L Potassium (3.5-5.0) mmol/L Chloride (101-111) mmol/L Carbon Dioxide (21-32) mmol/L Anion Gap (6-13) BUN (6-20) mg/dL Creatinine (0.6-1.2) mg/dL Estimated GFR (MDRD) (>89) Glucose (70-100) mg/dL POC Whole Bld Glucose 100 115 H (70 - 100) mg/dL Calcium (8.5-10.3) mg/dL Total Bilirubin (0.2-1.0) mg/dL AST (10-42) IU/L ALT (10-60) IU/L Alkaline Phosphatase (42-121) IU/L Total Protein (6.7-8.2) g/dL Albumin (3.2-5.5) g/dL Globulin (2.1-4.2) g/dL Albumin/Globulin Ratio (1.0-2.2) Prealbumin (18-45) mg/dL Triglycerides ( - 149) mg/dL 08/31/21 Range/Units 12:57 WBC (4.8-10.8) x10^3/uL RBC (4.70-6.10) 10^6/uL Hgb (14.0-18.0) g/dL Hct (42.0-52.0) % MCV (80.0-94.0) fL MCH (27.0-31.0) pg MCHC (32.0-36.0) g/dL RDW (12.0-15.0) % Plt Count (130-450) 10^3/uL MPV (7.4-11.4) fL Neut # (Auto) (1.5-6.6) 10^3/uL Lymph # (Auto) (1.5-3.5) 10^3/uL [place] # (Auto) (0.0-1.0) 10^3/uL Eos # (Auto) (0.0-0.7) 10^3/uL Baso # (Auto) (0.0-0.1) 10^3/uL Absolute Nucleated RBC x10^3/uL Nucleated RBC % /100WBC Sodium (135-145) mmol/L Potassium (3.5-5.0) mmol/L Chloride (101-111) mmol/L Carbon Dioxide (21-32) mmol/L Anion Gap (6-13) BUN (6-20) mg/dL Creatinine (0.6-1.2) mg/dL Estimated GFR (MDRD) (>89) Glucose (70-100) mg/dL POC Whole Bld Glucose 120 H (70 - 100) mg/dL Calcium (8.5-10.3) mg/dL Total Bilirubin (0.2-1.0) mg/dL AST (10-42) IU/L ALT (10-60) IU/L Alkaline Phosphatase (42-121) IU/L Total Protein (6.7-8.2) g/dL Albumin (3.2-5.5) g/dL Globulin (2.1-4.2) g/dL Albumin/Globulin Ratio (1.0-2.2) Prealbumin (18-45) mg/dL Triglycerides ( - 149) mg/dL - Imaging Results Imaging Results Comments: Nothing new to review - Current Medications Current Medications: Current Medications Generic Name Dose Route Start Last Admin Trade Name Freq PRN Reason Stop Dose Admin Hydromorphone HCl 0.5 mg 08/31/21 11:50 08/31/21 21:09 Hydromorphone 0.5 Mg/0.5 Ml Syringe IVP 0.5 mg Q2H PRN Administration PAIN Multivitamins 10 ml/ TRACE 2,011 mls @ 83 mls/hr 08/30/21 19:00 08/31/21 19:21 ELEMENTS 1 ml/ Amino Ac/ IV 83 mls/hr Electrol/Dextrose/Calcium TPN/PPN GLORIA Administration Fat Emulsion-Soy/MCT/[place]/Fish Oil 50 gm in 250 mls @ 21 mls/hr 08/30/21 19:00 09/01/21 07:19 Smoflipid 20% Iv Fat Emulsion IV Infused 1900 GLORIA Infusion Ondansetron HCl 4 mg 08/27/21 20:13 08/28/21 00:38 Ondansetron 4 Mg/2 Ml Vial IVP 4 mg Q4HR PRN Administration Nausea / Vomiting Phenol/Menthol 2 sprays 08/29/21 16:53 08/29/21 18:13 Phenol Throat [place] 177 Ml MM 2 sprays Q2HR PRN Administration Throat Pain Sodium Chloride 10 ml 08/28/21 01:00 09/01/21 09:50 Sodium Chloride Flush 0.9% 10 Ml Syringe IVP 10 ml 0100,0900,1700 GLORIA Administration Sodium Chloride 10 ml 08/27/21 19:24 08/31/21 12:00 Sodium Chloride Flush 0.9% 10 Ml Syringe IVP 10 ml PRN PRN Administration NEEDED PER PROVIDER ORDERS Throat Lozenges 1 lozenge 08/29/21 16:53 08/29/21 18:14 Benzocaine/Menthol Lozenge MM 1 lozenge Q2HR PRN Administration Throat pain - Physical Exam Wound/Incisions: positive: Healing well General Appearance: positive: No acute distress, Alert Eyes Bilateral: positive: Normal inspection, PERRL, EOMI ENT: positive: ENT inspection nml Neck: positive: Nml inspection Respiratory: positive: Chest non-tender, No respiratory distress, Breath sounds nml Cardiovascular: positive: Regular rate & rhythm Abdomen: positive: Nml bowel sounds, Tenderness. negative: Guarding, Rebound ABX Reporting Has patient been on IV antibiotics over the past 48 hours?: No Impression/Plan - Problem List Problem List: Midgut volvulus with associated bowel obstruction-resolved. 1. Continue TPN today. He has experienced long-term pain and an extensive period of malnutrition.Prealbumin is 15. 2. 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 3.I added IV Tylenol hoping to decrease his need for hydromorphone.If he continues to do well, we could switch to oral meds. 4.We will reassess this afternoon. If he continues to do well, could consider discharge or Monday.
[2021-09-01] MEDS: FAT EMUL/SOY/MCT/OLIV/FISH OIL 50 GM/250 ML BAG IV SCH (19:12)
[2021-09-01] MEDS: TPN (CLINIMIX E 5/15) 2,000 ML with MULTIVITAMIN 10 ML, TRACE ELEMENTS 1 ML IV SCH ×3 (19:12)
[2021-09-01] MEDS: HYDROmorphone 0.5 MG/0.5 ML SYRINGE IVP PRN (21:47)
[2021-09-02] MEDS: SODIUM CHLORIDE FLUSH 0.9% 10 ML SYRINGE IVP SCH ×2 (00:08→11:25)
[2021-09-02 07:39] VITALS: BP 109/63
--- NOTE | 2021-09-02 09:24 | Discharge Plan ---
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 Call for help. Follow-up with: Joselo Acevedo MD [Provider Admit Priv/Credential] -
[2021-09-02] MEDS ORDERED: oxyCODONE 5 MG TABLET PO PRN (09:25)
--- NOTE | 2021-09-07 15:38 | DISCHARGE SUMMARY ---
Discharge Summary Admit Date: 08/27/21 Discharge Date: 09/02/21 Discharging Provider: Kristina Code Status: Attempt Resuscitation Condition at Discharge: Stable Discharge Disposition: 01 Home, Self Care - DIAGNOSES Admission Diagnoses: Sigmoid volvulus Discharge Diagnoses with Status of Each Condition: Midgut volvus with bowel obstruction - HPI History of Present Illness: This 41 yo male has had recurrent episodes of abdominal pain and has had an extensive GI workup elsewhere. He has had endoscopies, pill cam, but no definite diagnosis made. He has been prescribed flagyl for "SIBO"- small intestine bacterial overgrowth which he takes occasionally. Last episode was 18 months ago and resolved spontaneously. This episode started 3 days ago and has been associated with N/V/constipation. He has not eaten for two days. No previous abdominal surgery. He has not had any abdominal imaging during an episode until now. His father had a similar condition, undiagnosed, and recently. No definite hx of IBD in the family. - CONSULTS | PROCEDURES Consultations: None Procedures: Exploratory laparotomy with reduction of midgut volvulus - HOSPITAL COURSE Hospital Course: Mr. Chacon was admitted from the emergency room and taken to the operating room for flexible sigmoidoscopy in attempt to reduce sigmoid volvulus.No volvulus was identified. The next morning, he was taken to the operating room for exploratory laparotomy. He was found to have midgut volvulus and this was corrected. He was taken to the MedSurg unit postoperatively for convalescence and supportive care. Due to his chronic state of malnutrition, he was started on total parenteral nutrition. His pain improved significantly and he began to experience return of bowel function by postop day 2.At the time of discharge, he is tolerating a regular diet and walking the halls unassisted. He is having regular bowel movements and passing flatus in the normal fashion.He is discharged to his home in the care of his family. - ALLERGIES Allergies/Adverse Reactions: Allergies Allergy/AdvReac Type Severity Reaction Status Date / Time cefaclor [From Ceclor] Allergy Rash Verified 08/27/21 14:23 Penicillins Allergy Hives Verified 08/27/21 14:23 lactose AdvReac Cramps Verified 08/30/21 14:04 - MEDICATIONS Home Medications: Ambulatory Orders Medication Instructions Recorded Confirmed metroNIDAZOLE [Flagyl] 1 tab ORAL PRN PRN 08/27/21 08/27/21 Ondansetron Odt [Zofran Odt] 4 mg TL Q6H PRN #10 tablet 09/02/21 oxyCODONE [Roxicodone] 5 mg PO Q4-6H PRN #10 tablet 09/02/21 - PHYSICAL EXAM AT DISCHARGE General Appearance: positive: No acute distress, Alert Eyes Bilateral: positive: Normal inspection, PERRL, EOMI Neck: positive: Nml inspection Respiratory: positive: No respiratory distress, Breath sounds nml Cardiovascular: positive: Regular rate & rhythm Peripheral Pulses: positive: 1+ Abdomen: positive: Nml bowel sounds, Tenderness. negative: Guarding, Rebound Back: negative: CVA tenderness (R), CVA tenderness (L) Skin: positive: Color nml Neurologic/Psychiatric: positive: Oriented x3 - LABS Result Diagrams: 09/01/21 05:30 09/01/21 05:30 - QUALITY (Female Hip Fx Only) Was patient sent home on osteoporosis medication?: No - FOLLOW UP Follow Up: Dr. Acevedo in 2 weeks - TIME SPENT Time Spent in Discharge (Minutes): 20
== END 2021-09-02 14:13 | disposition home or self-care (01) | DRG 330 ==
LOC: ED 14:15 → SDS 17:18 → MS2 19:24
PROVIDERS: ADMIT Surgery; ATTEND Surgery
PROC: 0DJD8ZZ Inspection of Lower Intestinal Tract, Via Natural or Artificial Opening Endoscopic (ICD-10-PCS; 2021-08-27)
PROC: 0DSH0ZZ Reposition Cecum, Open Approach (ICD-10-PCS; principal; 2021-08-28 09:00)
PROC: 02HV33Z Insertion of Infusion Device into Superior Vena Cava, Percutaneous Approach (ICD-10-PCS; 2021-08-30)
PROC: 3E0436Z Introduction of Nutritional Substance into Central Vein, Percutaneous Approach (ICD-10-PCS; 2021-08-31)
DX: K56.2 Volvulus (principal); E46 Unspecified protein-calorie malnutrition; Z20.822 Contact with and (suspected) exposure to COVID-19
CPT/HCPCS: 0202U; 36415; 71045; 71046; 74018; 74177; 80048; 80053; 83690; 83735; 84100; 84134; 84478; 85025; 96374; 96375; 99285; A9270; C1751; J0131; J1170; J2765; J3490; J7120; Q9967

== ENCOUNTER 2022-02-18 04:20 | Outpatient (CLI) | payer OTHER | END 2022-02-18 04:21 | disposition critical access hospital (66) | LOC: EMS 04:20 | DX: R20.0 Anesthesia of skin (principal); M79.18 Myalgia, other site; R29.898 Other symptoms and signs involving the musculoskeletal system | CPT/HCPCS: A0425; A0429 ==

== ENCOUNTER 2022-02-18 04:55 | Emergency (ER) | payer OTHER ==
[2022-02-18] MEDS ORDERED: SODIUM CHLORIDE 0.9% 1,000 ML IV STA (05:12)
[2022-02-18] MEDS ORDERED: KETOROLAC 15 MG/ML VIAL IVP STA (05:12)
--- NOTE | 2022-02-18 05:13 | ED Physician Documentation ---
PD HPI FOCAL NEURO - Stated complaint Stated Complaint: L LEG NUMBNESS - Chief complaint Chief Complaint: Neuro - History obtained from History obtained from: Patient, EMS - History of Present Illness Timing - onset: How many hours ago (progressive onset of tingling then numbness and then feeling of weakness left leg. No symptoms of arm nor face. Had some aching feeling low back/SI area as well. He felt he could not move leg after awhile, so called EMS. Improving enroute. Per Medic: nl color/pulses, no edema, but less sensation.) Timing - duration: Hours Timing - details: Abrupt onset, Now resolved Severity of deficit: Moderate Weakness: Leg, Left. No: Face, Arm Numbness: Leg, Left. No: Face, Arm Associated symptoms: Back pain (did notice some back pain/muscle tightness after some bending/lifting yard work the past couple days. No fall nor impact.). 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 Is slowly increasing activity level.) Review of Systems Constitutional: denies: Fever, Chills Nose: denies: Rhinorrhea / runny nose, Congestion Throat: denies: Sore throat Cardiac: denies: Chest pain / pressure Respiratory: denies: Dyspnea GI: reports: Abdominal Pain (just abd wound healing scar pain since surgery.). denies: Nausea, Vomiting, Diarrhea : denies: Dysuria, Incontinent Skin: denies: Rash, Lesions Neurologic: reports: Focal weakness, Numbness PD PAST MEDICAL HISTORY - Past Medical History Cardiovascular: None Respiratory: None Neuro: None Endocrine/Autoimmune: None GI: Chronic constipation : None HEENT: None Psych: None Musculoskeletal: None Derm: None - Past Surgical History Past Surgical History: Yes HEENT: Other - Present Medications Home Medications: Ambulatory Orders Medication Instructions Recorded Confirmed HYDROcod/ACETAM 5/325 [Surfside 5/325] 1 ea PO Q6H PRN #12 tablet 02/18/22 Naproxen 500 mg PO BID #20 tab.sr 02/18/22 tiZANidine [Zanaflex] 4 mg PO Q8H PRN #20 tablet 02/18/22 - Allergies Allergies/Adverse Reactions: Allergies Allergy/AdvReac Type Severity Reaction Status Date / Time cefaclor [From [facility]] Allergy Rash Verified 02/18/22 05:06 Penicillins Allergy Hives Verified 02/18/22 05:06 lactose AdvReac Cramps Verified 02/18/22 05:06 - Social History Does the pt smoke?: No Smoking Status: Never smoker Does the pt drink ETOH?: Yes Does the pt have substance abuse?: No - Immunizations Immunizations are current?: Yes - POLST Patient has POLST: No PD ED PE NORMAL - Vitals Vital signs reviewed: Yes - General General: Alert and oriented X 3, No acute distress, Well developed/nourished - Neck Neck: Supple, no meningeal sign, No adenopathy - Cardiac Cardiac: RRR, No murmur - Respiratory Respiratory: No respiratory distress, Clear bilaterally - Abdomen Abdomen: Normal bowel sounds, Soft, Non distended, No organomegaly, Other (well healing lower abd midline scar without signs of infection. Abd generally not tender. ) - Male Male : Deferred - Rectal Rectal: Deferred - Back Back: No CVA TTP, No spinal TTP, Other (mildly tender left lower lumbar muscles. No rash nor sores. ) - Derm Derm: Normal color, Warm and dry - Extremities Extremities: No edema, No calf tenderness / cord, Other (normal pulses DP and post tibial, with good cap refill in toes. ) - Neuro Neuro: Alert and oriented X 3, No sensory deficit, Other (1+ DTR left knee, 2+ on right. ). No: No motor deficit (mild decreased strength left side for dorsiflexion against resistance. Else normal. ) Eye Opening: Spontaneous Motor: Obeys Commands Verbal: Oriented GCS Score: 15 NIHSS - Level of Consciousness Level of consciousness: (0) Alert, Keenly responsive LOC Questions: (0) Answers both Q's correct LOC Commands: (0) Performs both correctly - Gaze Best Gaze: (0) Normal - Visual Visual: (0) No loss - Facial Palsy Facial Palsy: (0) Normal, symmetrical movement - Motor Arms (both separate) Motor Arm (right): (0) No drift Motor Arm (left): (0) No drift - Motor Legs (both separate) Motor Leg (right): (0) No drift Motor Leg (left): (0) No drift - Limb Ataxia Limb Ataxia: (0) Absent - Sensory Sensory: (0) Normal - Best Language Best Language: (0) No aphasia - Dysarthria Dysarthria: (0) Normal - Extinction and Inattention (formally neg Extinction and inattention: (0) No abnormality - Total Score/Results Total Score/Result: 0 Results - Vitals Vitals: Vital Signs - 24 hr 02/18/22 02/18/22 02/18/22 05:01 05:09 07:08 Temperature 36.5 C Heart Rate 62 62 57 L Respiratory 15 16 12 Rate Blood Pressure 107/51 L 113/47 L 103/46 L O2 Saturation 99 95 96 Oxygen O2 Source Room air - Labs Labs: Laboratory Tests 02/18/22 02/18/22 06:09 06:09 WBC 13.9 H RBC 3.73 L Hgb 11.7 L Hct 36.8 L MCV 98.7 H MCH 31.4 H MCHC 31.8 L RDW 14.4 Plt Count 141 MPV 9.4 Neut # (Auto) 11.4 H Lymph # (Auto) 1.2 L Avery # (Auto) 1.1 H Eos # (Auto) 0.1 Baso # (Auto) 0.0 Absolute Nucleated RBC 0.00 Nucleated RBC % 0.0 Sodium 141 Potassium 3.1 L Chloride 107 Carbon Dioxide 25 Anion Gap 9.0 BUN 10 Creatinine 0.9 Estimated GFR (MDRD) 93 Glucose 109 H Calcium 8.8 Magnesium 1.5 L Total Bilirubin 0.6 AST 23 ALT 28 Alkaline Phosphatase 66 Total Protein 5.7 L Albumin 3.5 Globulin 2.2 Albumin/Globulin Ratio 1.6 Lipase 29 PD MEDICAL DECISION MAKING - ED course Complexity details: re-evaluated patient (his foot and leg feel even better with completely normal motor movement. Normal dorsiflexion. Has some left lower lumbar pain still.), considered differential (His symptoms have improved. It seems more likely lower back spasm with some radicular symptoms. He has good femoral pulse and color pulses and capillary refill in the leg so no obvious vascular insufficiency. No edema. Slight decrease strength for dorsiflexion on the left. Consider nerve root.), d/w patient Departure - Departure Disposition: 01 Home, Self Care Clinical Impression: Hypokalemia, Hypomagnesemia, Numbness and tingling of left lower extremity Condition: Stable Record reviewed to determine appropriate education?: Yes Instructions: ED Paraesthesias Follow-Up: Joselo Acevedo MD [Provider Admit Priv/Credential] - Prescriptions: Naproxen 500 mg PO BID #20 tab.sr HYDROcod/ACETAM 5/325 [Surfside 5/325] 1 ea PO Q6H PRN #12 tablet PRN Reason: Pain tiZANidine [Zanaflex] 4 mg PO Q8H PRN #20 tablet PRN Reason: Spasms Comments: Its unclear the cause of your numbness and weakness transiently in the leg. Your potassium and magnesium levels are a bit low but I do not know that this would account for it in and of itself. However you should take a potassium and magnesium supplements over the next week or so to improve that. Otherwise continue normal activity and diet and see if any return of symptoms. Presumption would be some muscle spasm with "pinched nerve" symptoms down your leg. As such you could also try some anti-inflammatories over the next several days to week and add a muscle relaxant if you are experiencing some spasms or stiffness in the low back. Add Hydrocodone every 6 hours if needed for worse pain. I transmitted prescriptions for these to the [facility] pharmacy.
[2022-02-18 06:16] LABS: BASOPHILS % (AUTO) 0.3 %; EOSINOPHILS # (AUTO) 0.1 10^3/uL (0.0-0.7); EOSINOPHILS % (AUTO) 0.6 %; HCT - HEMATOCRIT 36.8 % (42.0-52.0); HGB - HEMOGLOBIN 11.7 g/dL (14.0-18.0); LYMPHOCYTES # (AUTO) 1.2 10^3/uL (1.5-3.5); LYMPHOCYTES % (AUTO) 8.6 %; MEAN CORPUSCULAR HEMOGLOBIN 31.4 pg (27.0-31.0); MEAN CORPUSCULAR HGB CONC 31.8 g/dL (32.0-36.0); MEAN CORPUSCULAR VOLUME 98.7 fL (80.0-94.0); MEAN PLATELET VOLUME 9.4 fL (7.4-11.4); MONOCYTES # (AUTO) 1.1 10^3/uL (0.0-1.0); MONOCYTES % (AUTO) 7.9 %; NEUTROPHILS # (AUTO) 11.4 10^3/uL (1.5-6.6); NEUTROPHILS % (AUTO) 82.2 %; PLT - PLATELET COUNT 141 10^3/uL (130-450); RED BLOOD COUNT 3.73 10^6/uL (4.70-6.10); RED CELL DISTRIBUTION WIDTH 14.4 % (12.0-15.0); WHITE BLOOD COUNT 13.9 x10^3/uL (4.8-10.8)
[2022-02-18 06:25] LABS: ALBUMIN 3.5 g/dL (3.2-5.5); ALBUMIN/GLOBULIN RATIO 1.6 (1.0-2.2); BILIRUBIN,TOTAL 0.6 mg/dL (0.2-1.0); CALCIUM 8.8 mg/dL (8.5-10.3); CREATININE 0.9 mg/dL (0.6-1.2); MAGNESIUM 1.5 mg/dL (1.7-2.8); POTASSIUM 3.1 mmol/L (3.5-5.0); TOTAL PROTEIN 5.7 g/dL (6.7-8.2)
[2022-02-18] MEDS ORDERED: methocarbamoL 500 MG TABLET PO STA (06:38)
[2022-02-18] MEDS ORDERED: HYDROmorphone 0.5 MG/0.5 ML SYRINGE IVP STA (06:38)
[2022-02-18] MEDS ORDERED: MAGNESIUM OXIDE 400 MG TABLET PO STA (06:40)
[2022-02-18] MEDS ORDERED: POTASSIUM CHLORIDE 20 MEQ TABLET PO STA (06:40)
[2022-02-18] MEDS ORDERED: HYDROmorphone 1 MG/ML CARPUJECT IVP STA (07:30)
[2022-02-18 08:29] VITALS: BP 98/40
== END 2022-02-18 08:29 | disposition home or self-care (01) ==
LOC: EDUNIT# → EDBD → ED 04:55
DX: E87.6 Hypokalemia (principal); E83.42 Hypomagnesemia; R20.0 Anesthesia of skin
CPT/HCPCS: 36415; 80053; 83690; 83735; 85025; 96361; 96374; 96376; 99283; 99284; A9270; J1170

== ENCOUNTER 2022-02-18 14:46 | Outpatient (CLI) | payer OTHER | END 2022-02-18 14:47 | disposition E | LOC: EMS 14:46 | DX: I46.9 Cardiac arrest, cause unspecified (principal) | CPT/HCPCS: A0425; A0428 ==